=== PATIENT | male | born 1945 | race Caucasian/White ===

== ENCOUNTER 2017-09-01 08:09 | Emergency (ER) | payer MEDICARE, OTHER ==
[~2017-09-01] VITALS: Ht 172.7 cm; Wt 72.6 kg
[2017-09-01 09:01] LABS: Basophils # (auto) 0 uL; Basophils % (auto) 0.3 % (0.0-2.0); Eosinophils # (auto) 0 uL; Eosinophils % (auto) 0.5 % (0.0-7.0); Hematocrit 47.9 % (41.0-53.0); Hemoglobin 16.2 g/dL (13.5-17.5); Lymphocytes # (auto) 1.6 uL; Lymphocytes % (auto) 15.9 % (10.0-50.0); Mean Corpuscular Hemoglobin 31.9 pg (28.0-32.0); Mean Corpuscular Hgb Conc. 33.7 g/dL (32.0-36.0); Mean Corpuscular Volume 94.7 fL (80.0-100.0); Mean Platelet Volume 8.3 fL (6.9-10.8); Monocytes # (auto) 0.8 uL; Monocytes % (auto) 7.8 % (0.0-12.0); Neutrophils # (auto) 7.6 uL; Neutrophils % (auto) 75.5 % (37.0-80.0); Nucleated Red Blood Cells % 0.1 %; Platelet Count (auto) 229 10^3/uL (140-450); White Blood Cell 10.1 10^3/uL (4.4-10.8)
[2017-09-01] MEDS ORDERED: SODIUM CHLORIDE 0.9% 1,000 ML IV ONE (09:07)
[2017-09-01] MEDS ORDERED: IPRATROPIUM BROM 0.5 MG/2.5ML INH SOL NEB ONE (09:15)
[2017-09-01] MEDS ORDERED: ALBUTEROL SULF 2.5 MG/0.5ML(0.5%) NEB SOLN NEB ONE (09:15)
[2017-09-01 09:40] LABS: Albumin 3.9 g/dL (3.4-5.0); BUN/Creatinine Ratio 31.6; Bilirubin, Total 0.7 mg/dL (0.2-1.0); Calcium 9.3 mg/dL (8.5-10.1); Potassium 3.6 mmol/L (3.5-5.1); Total Protein 7.8 g/dL (6.4-8.2)
[2017-09-01 10:11] LABS: B-Type Natriuretic Peptide 16.68 pg/mL (0-100)
[2017-09-01 10:12] LABS: Temperature: 23.5 C (20.0-25.0)
== END 2017-09-01 13:09 | disposition home or self-care (01) ==
LOC: ER 08:09
DX: J45.909 Unspecified asthma, uncomplicated (principal); I10 Essential (primary) hypertension
CPT/HCPCS: 36415; 71010; 80053; 83735; 83880; 84443; 84484; 85025; 93005; 94640; 94761; 96360; 96361; 99285; J7030

== ENCOUNTER 2017-09-03 18:50 | Inpatient (IN) | payer MEDICARE, OTHER ==
[~2017-09-03] VITALS: Ht 172.7 cm; Wt 73.2 kg
[2017-09-03 20:25] LABS: Urine Bacteria MANY /hpf (None Seen); Urine Blood 1+ /uL (Negative); Urine Specific Gravity 1.011 (1.001-1.035); Urine WBC 20 /hpf (0 - 3)
[2017-09-03] MEDS ORDERED: IPRATROPIUM BROM 0.5 MG/2.5ML INH SOL NEB ONE (20:45)
[2017-09-03] MEDS ORDERED: ALBUTEROL SULF 2.5 MG/0.5ML(0.5%) NEB SOLN NEB ONE (20:45)
[2017-09-03 20:55] LABS: Basophils # (auto) 0 uL; Basophils % (auto) 0.4 % (0.0-2.0); Eosinophils # (auto) 0 uL; Eosinophils % (auto) 0.3 % (0.0-7.0); Hematocrit 43.4 % (41.0-53.0); Hemoglobin 15.1 g/dL (13.5-17.5); Lymphocytes % (auto) 8.6 % (10.0-50.0); Mean Corpuscular Hemoglobin 31.7 pg (28.0-32.0); Mean Corpuscular Hgb Conc. 34.7 g/dL (32.0-36.0); Mean Corpuscular Volume 91.3 fL (80.0-100.0); Monocytes % (auto) 8.1 % (0.0-12.0); Neutrophils # (auto) 9.8 uL; Neutrophils % (auto) 82.6 % (37.0-80.0); Nucleated Red Blood Cells % 0.2 %; Platelet Count (auto) 261 10^3/uL (140-450); Red Blood Cells 4.76 10^6/uL (4.5-5.90); Red Cell Distribution Width 13.5 % (11.8-14.3); White Blood Cell 11.8 10^3/uL (4.4-10.8)
[2017-09-03] MEDS ORDERED: methylPREDNISolone SOD SUCC 125 MG/2 ML VL IV ONE (21:00)
[2017-09-03] MEDS ORDERED: cefTRIAXone 1GM/10ml IVPUSH 10 ML IV ONE (21:00)
[2017-09-03 21:07] LABS: Alanine Aminotransferase 16 U/L (16-61); Albumin 3.5 g/dL (3.4-5.0); Anion Gap 9 (5-15); Aspartate Aminotransferase 16 U/L (15-37); BUN/Creatinine Ratio 48.1; Blood Urea Nitrogen 13 mg/dL (7-18); Calcium 8.6 mg/dL (8.5-10.1); Carbon Dioxide 29 mmol/L (21-32); Chloride 93 mmol/L (98-107); GFR African American 429 mL/min; GFR Non-African American 355 mL/min; Glucose 125 mg/dL (74-106); Magnesium 1.9 mg/dL (1.6-2.6); Sodium 131 mmol/L (136-145)
[2017-09-03 21:13] LABS: Alkaline Phosphatase 78 U/L (45-117); Bilirubin, Total 0.4 mg/dL (0.2-1.0); Total Protein 7.2 g/dL (6.4-8.2)
[2017-09-03] MEDS ORDERED: cloNIDine HCL 0.1 MG TAB PO ONE (22:45)
[2017-09-03] MEDS ORDERED: cloNIDine HCL 0.1 MG TAB PO PRN (22:45)
[2017-09-03] MEDS ORDERED: SODIUM CHLORIDE 0.9% 1,000 ML IV SCH (22:48)
[2017-09-03] MEDS ORDERED: LACTULOSE 20Gm/30ML SOLN PO PRN (23:00)
[2017-09-03] MEDS ORDERED: MORPHINE SULF INJ 2 MG/ML SYRINGE 1ML IV PRN (23:00)
[2017-09-03] MEDS ORDERED: ONDANSETRON HCL 4 MG/2 ML VIAL IV PRN (23:00)
[2017-09-03] MEDS ORDERED: LEVOFLOXACIN 500MG 100 ML IV ONE (23:00)
[2017-09-03] MEDS ORDERED: NITROGLYCERIN 0.4 MG SL TAB SL PRN (23:00)
[2017-09-03] MEDS ORDERED: POTASSIUM CHL 10% (20 MEQ/15ML) 15ml ORAL SOLN PO ONE (23:00)
[2017-09-03] MEDS: methylPREDNISolone SOD SUCC 40 MG/ML VL IV SCH (23:00)
[2017-09-04] VITALS (79 sets, daily range): BP systolic 49–176; BP diastolic 37–101
[2017-09-04] MEDS ORDERED: DILTIAZEM HCL 25 MG/5 ML VIAL IV ONE (00:30)
[2017-09-04] MEDS: ALBUTEROL SULF 2.5 MG/0.5ML(0.5%) NEB SOLN NEB SCH ×4 (00:52→18:42)
[2017-09-04] MEDS: IPRATROPIUM BROM 0.5 MG/2.5ML INH SOL NEB SCH ×4 (00:52→18:42)
[2017-09-04] MEDS ORDERED: SUCCINYLCHOLINE CHLORIDE 20 MG/ML 10ML VIAL IV ONE ×4 (01:14→21:15)
[2017-09-04] MEDS ORDERED: ETOMIDATE (2MG/ML) 20ML VIAL IV ONE ×4 (01:14→21:15)
[2017-09-04] MEDS ORDERED: LORazepam 2MG/ML-1ML VIAL IV ONE (01:15)
[2017-09-04] MEDS ORDERED: SODIUM BICARBONATE 8.4% INJ 50ML SYRINGE ONE (01:18)
[2017-09-04] MEDS ORDERED: PROPOFOL 100 ML IV ONE (01:26)
[2017-09-04] MEDS ORDERED: SODIUM BICARBONATE 8.4 % INJ 50ML VIAL IV ONE ×2 (01:30)
[2017-09-04] MEDS ORDERED: PROPOFOL 100 ML IV SCH (01:30)
[2017-09-04] MEDS ORDERED: CLINDAMYCIN 600MG IV 50 ML IV ONE (02:00)
[2017-09-04] MEDS ORDERED: MIDAZOLAM DRIP 50 mg/50mL 50 ML IV ONE (02:03)
[2017-09-04] MEDS ORDERED: NOREPINEPHRINE 8 MG/250ML KIT 250 ML IV ONE (02:12)
[2017-09-04] MEDS ORDERED: SODIUM CHLORIDE 0.9% 1,000 ML IV ONE (02:30)
[2017-09-04] MEDS: MIDAZOLAM DRIP 50 mg/50mL 50 ML IV SCH ×3 (02:38→18:05)
[2017-09-04] MEDS: NOREPINEPHRINE 8 MG/250ML KIT 250 ML IV SCH (02:50)
[2017-09-04 06:51] LABS: Basophils # (auto) 0 uL; Basophils % (auto) 0.1 % (0.0-2.0); Eosinophils # (auto) 0 uL; Hematocrit 42.9 % (41.0-53.0); Hemoglobin 14.8 g/dL (13.5-17.5); Lymphocytes # (auto) 0.5 uL; Lymphocytes % (auto) 2.7 % (10.0-50.0); Mean Corpuscular Hemoglobin 31.7 pg (28.0-32.0); Mean Corpuscular Hgb Conc. 34.5 g/dL (32.0-36.0); Mean Corpuscular Volume 91.9 fL (80.0-100.0); Monocytes # (auto) 0.5 uL; Monocytes % (auto) 2.6 % (0.0-12.0); Neutrophils # (auto) 16.6 uL; Neutrophils % (auto) 94.6 % (37.0-80.0); Nucleated Red Blood Cells % 0.1 %; Platelet Count (auto) 283 10^3/uL (140-450); Red Blood Cells 4.66 10^6/uL (4.5-5.90); Red Cell Distribution Width 13.3 % (11.8-14.3); White Blood Cell 17.6 10^3/uL (4.4-10.8)
[2017-09-04 07:20] LABS: Albumin 3.2 g/dL (3.4-5.0); BUN/Creatinine Ratio 40.6; Bilirubin, Total 0.8 mg/dL (0.2-1.0); Calcium 8.6 mg/dL (8.5-10.1); Potassium 3.4 mmol/L (3.5-5.1); Total Protein 6.6 g/dL (6.4-8.2)
[2017-09-04] MEDS ORDERED: ENOXAPARIN SOD 80 MG/0.8ML SYRINGE SC ONE (08:15)
[2017-09-04] MEDS ORDERED: HCTZ 25 MG TAB PO SCH (10:00)
[2017-09-04] MEDS ORDERED: CLINDAMYCIN 600MG IV 50 ML IV SCH (10:00)
[2017-09-04] MEDS ORDERED: ENOXAPARIN SOD 40 MG/0.4 ML SYRINGE SC SCH (10:00)
[2017-09-04] MEDS ORDERED: LISINOPRIL 20 MG TAB PO SCH (10:00)
[2017-09-04] MEDS: PANTOPRAZOLE 40 MG/10 ML VIAL IV SCH (10:11)
[2017-09-04] MEDS: methylPREDNISolone SOD SUCC 40 MG/ML VL IV SCH ×2 (10:11→23:35)
[2017-09-04] MEDS ORDERED: IOHEXOL 350 MG/ML 100ML IJ ONE ×2 (10:12→16:17)
[2017-09-04] MEDS ORDERED: ATROPINE SULF 0.5 MG/5ML SYR ONE (10:30)
[2017-09-04] MEDS ORDERED: LISI-285 PO (11:08)
[2017-09-04] MEDS ORDERED: CYCL1TAB18 PO (11:08)
[2017-09-04] MEDS ORDERED: PRED-559 PO (11:08)
[2017-09-04] MEDS ORDERED: NAPR375T27 PO (11:08)
[2017-09-04] MEDS ORDERED: TRIA50TA2 PO (11:08)
[2017-09-04] MEDS ORDERED: POM (11:08)
[2017-09-04] MEDS ORDERED: POTASSIUM CHL 20MEQ/50ML 50 ML IV ONE (12:15)
[2017-09-04] MEDS: SODIUM CHLORIDE 0.9% 1,000 ML IV SCH (13:20)
[2017-09-04] MEDS ORDERED: ATROPINE SULFATE 0.4 MG/1 ML VIAL ONE (17:53)
[2017-09-04] MEDS: PIPERACILLIN-TAZOB 3.375GM 50 ML IV SCH ×2 (18:05→23:35)
[2017-09-04] MEDS: ENOXAPARIN SOD 80 MG/0.8ML SYRINGE SC SCH (21:58)
[2017-09-04] MEDS: LEVOFLOXACIN 500MG 100 ML IV SCH (21:58)
[2017-09-04] MEDS ORDERED: cefTRIAXone 1GM/10ml IVPUSH 10 ML IV SCH (22:00)
[2017-09-05] VITALS (83 sets, daily range): BP systolic 90–142; BP diastolic 59–85
[2017-09-05] MEDS: ALBUTEROL SULF 2.5 MG/0.5ML(0.5%) NEB SOLN NEB SCH ×4 (00:31→18:17)
[2017-09-05] MEDS: IPRATROPIUM BROM 0.5 MG/2.5ML INH SOL NEB SCH ×4 (00:31→18:17)
[2017-09-05] MEDS: SODIUM CHLORIDE 0.9% 1,000 ML IV SCH ×2 (01:35→20:35)
[2017-09-05] MEDS: MIDAZOLAM DRIP 50 mg/50mL 50 ML IV SCH ×2 (02:28→21:46)
[2017-09-05] MEDS: NOREPINEPHRINE 8 MG/250ML KIT 250 ML IV SCH (02:29)
[2017-09-05 04:40] LABS: Basophils # (auto) 0 uL; Basophils % (auto) 0.1 % (0.0-2.0); Eosinophils # (auto) 0 uL; Hematocrit 40.3 % (41.0-53.0); Hemoglobin 13.6 g/dL (13.5-17.5); Lymphocytes # (auto) 0.8 uL; Lymphocytes % (auto) 4.1 % (10.0-50.0); Mean Corpuscular Hemoglobin 31.3 pg (28.0-32.0); Mean Corpuscular Hgb Conc. 33.8 g/dL (32.0-36.0); Mean Corpuscular Volume 92.8 fL (80.0-100.0); Monocytes # (auto) 0.9 uL; Neutrophils # (auto) 17.1 uL; Neutrophils % (auto) 90.8 % (37.0-80.0); Platelet Count (auto) 263 10^3/uL (140-450); Red Blood Cells 4.34 10^6/uL (4.5-5.90); Red Cell Distribution Width 13.9 % (11.8-14.3); White Blood Cell 18.8 10^3/uL (4.4-10.8)
[2017-09-05 04:48] LABS: BUN/Creatinine Ratio 46.3; Calcium 8.5 mg/dL (8.5-10.1); Magnesium 2.1 mg/dL (1.6-2.6); Potassium 3.1 mmol/L (3.5-5.1)
[2017-09-05] MEDS: PIPERACILLIN-TAZOB 3.375GM 50 ML IV SCH ×4 (05:24→23:29)
[2017-09-05] MEDS ORDERED: POTASSIUM CHL 10% (20 MEQ/15ML) 15ml ORAL SOLN GT ONE (06:00)
[2017-09-05] MEDS: PROPOFOL 100 ML IV SCH (06:01)
[2017-09-05] MEDS: ENOXAPARIN SOD 80 MG/0.8ML SYRINGE SC SCH ×2 (09:47→21:46)
[2017-09-05] MEDS: PANTOPRAZOLE 40 MG/10 ML VIAL IV SCH (09:47)
[2017-09-05] MEDS: methylPREDNISolone SOD SUCC 40 MG/ML VL IV SCH ×2 (13:12→23:29)
[2017-09-05] MEDS ORDERED: fentaNYL Drip 2500mCg/250mlNS 250 ML IV SCH (14:32)
[2017-09-05] MEDS: LEVOFLOXACIN 500MG 100 ML IV SCH (21:46)
[2017-09-06] VITALS (98 sets, daily range): BP systolic 90–186; BP diastolic 44–127
[2017-09-06] MEDS: NOREPINEPHRINE 8 MG/250ML KIT 250 ML IV SCH (02:30)
[2017-09-06 05:25] LABS: Basophils # (auto) 0 uL; Basophils % (auto) 0.1 % (0.0-2.0); Eosinophils # (auto) 0 uL; Hematocrit 38.7 % (41.0-53.0); Hemoglobin 13.3 g/dL (13.5-17.5); Lymphocytes # (auto) 1.1 uL; Lymphocytes % (auto) 7.4 % (10.0-50.0); Mean Corpuscular Hemoglobin 31.9 pg (28.0-32.0); Mean Corpuscular Hgb Conc. 34.3 g/dL (32.0-36.0); Mean Corpuscular Volume 93.1 fL (80.0-100.0); Monocytes # (auto) 0.6 uL; Monocytes % (auto) 4.4 % (0.0-12.0); Neutrophils # (auto) 12.8 uL; Neutrophils % (auto) 88.1 % (37.0-80.0); Nucleated Red Blood Cells % 0.1 %; Platelet Count (auto) 229 10^3/uL (140-450); Red Blood Cells 4.16 10^6/uL (4.5-5.90); White Blood Cell 14.5 10^3/uL (4.4-10.8)
[2017-09-06 05:37] LABS: BUN/Creatinine Ratio 68.8; Calcium 8.5 mg/dL (8.5-10.1); Potassium 3.5 mmol/L (3.5-5.1)
[2017-09-06] MEDS: PIPERACILLIN-TAZOB 3.375GM 50 ML IV SCH ×3 (05:40→18:08)
[2017-09-06] MEDS: ALBUTEROL SULF 2.5 MG/0.5ML(0.5%) NEB SOLN NEB SCH ×3 (06:23→18:46)
[2017-09-06] MEDS: IPRATROPIUM BROM 0.5 MG/2.5ML INH SOL NEB SCH ×3 (06:24→18:46)
[2017-09-06] MEDS: PROPOFOL 100 ML IV SCH (09:57)
[2017-09-06] MEDS: SODIUM CHLORIDE 0.9% 1,000 ML IV SCH (09:58)
[2017-09-06] MEDS ORDERED: POTASSIUM CHL 20 Meq TABLET PO ONE (11:15)
[2017-09-06] MEDS: PANTOPRAZOLE 40 MG/10 ML VIAL IV SCH (11:22)
[2017-09-06] MEDS: methylPREDNISolone SOD SUCC 40 MG/ML VL IV SCH ×2 (11:24→22:33)
[2017-09-06] MEDS: ENOXAPARIN SOD 80 MG/0.8ML SYRINGE SC SCH ×2 (11:24→22:13)
[2017-09-06] MEDS: ACETAMINOPHEN 325 MG TAB PO PRN (12:52)
[2017-09-06] MEDS: POTASSIUM CHL 10% (20 MEQ/15ML) 15ml ORAL SOLN GT ONE ×2 (12:52→16:00)
[2017-09-06] MEDS ORDERED: POTASSIUM CHL 20MEQ/50ML 50 ML IV ONE ×2 (17:12→17:15)
[2017-09-06] MEDS ORDERED: METOPROLOL TARTRATE 1MG/1ML-5ML VIAL IV ONE ×2 (18:09→18:15)
[2017-09-06] MEDS ORDERED: FUROSEMIDE 40 MG/4 ML VIAL ONE (21:43)
[2017-09-06] MEDS ORDERED: FUROSEMIDE 40 MG/4 ML VIAL IV ONE (21:45)
[2017-09-06] MEDS: LEVOFLOXACIN 500MG 100 ML IV SCH (22:13)
[2017-09-06] MEDS ORDERED: ENALAPRILAT 1.25 MG/ML-1ML VIAL IV ONE (23:44)
[2017-09-07] VITALS (44 sets, daily range): BP systolic 117–218; BP diastolic 78–133
[2017-09-07] MEDS: PIPERACILLIN-TAZOB 3.375GM 50 ML IV SCH ×4 (00:03→18:00)
[2017-09-07] MEDS: ENALAPRILAT 1.25 MG/ML-1ML VIAL IV PRN ×3 (00:03→13:12)
[2017-09-07] MEDS: ALBUTEROL SULF 2.5 MG/0.5ML(0.5%) NEB SOLN NEB SCH ×4 (00:28→18:35)
[2017-09-07] MEDS: IPRATROPIUM BROM 0.5 MG/2.5ML INH SOL NEB SCH ×4 (00:28→18:35)
[2017-09-07] MEDS: SODIUM CHLORIDE 0.9% 1,000 ML IV SCH (01:20)
[2017-09-07 04:05] LABS: Basophils # (auto) 0 uL; Eosinophils # (auto) 0 uL; Hematocrit 45.8 % (41.0-53.0); Hemoglobin 15.3 g/dL (13.5-17.5); Lymphocytes % (auto) 5.5 % (10.0-50.0); Mean Corpuscular Hemoglobin 31.3 pg (28.0-32.0); Mean Corpuscular Hgb Conc. 33.5 g/dL (32.0-36.0); Mean Corpuscular Volume 93.5 fL (80.0-100.0); Monocytes # (auto) 0.8 uL; Monocytes % (auto) 4.8 % (0.0-12.0); Neutrophils # (auto) 15.5 uL; Neutrophils % (auto) 89.7 % (37.0-80.0); Platelet Count (auto) 264 10^3/uL (140-450); Red Cell Distribution Width 13.7 % (11.8-14.3); White Blood Cell 17.3 10^3/uL (4.4-10.8)
[2017-09-07 08:19] LABS: INR 1.07 (0.9-1.15); Prothrombin Time 11.7 sec (9.37-12.3)
[2017-09-07] MEDS ORDERED: POTASSIUM CHL 20MEQ/50ML 50 ML IV ONE (09:15)
[2017-09-07] MEDS ORDERED: METOPROLOL TARTRATE 1MG/1ML-5ML VIAL IV PRN (09:15)
[2017-09-07] MEDS: PANTOPRAZOLE 40 MG/10 ML VIAL IV SCH (09:34)
[2017-09-07] MEDS: ENOXAPARIN SOD 80 MG/0.8ML SYRINGE SC SCH ×2 (09:35→21:39)
[2017-09-07] MEDS: methylPREDNISolone SOD SUCC 40 MG/ML VL IV SCH ×2 (11:40→22:27)
[2017-09-07] MEDS ORDERED: LABETALOL HCL 5 MG/ML ML 20ML VIAL IV SCH (12:00)
[2017-09-07] MEDS ORDERED: LORazepam 2MG/ML-1ML VIAL IM ONE (14:15)
[2017-09-07] MEDS ORDERED: CARVEDILOL 12.5 MG TAB PO ONE (15:00)
[2017-09-07] MEDS ORDERED: LISINOPRIL 20 MG TAB PO ONE (15:00)
[2017-09-07] MEDS: LEVOFLOXACIN 500MG 100 ML IV SCH (21:38)
[2017-09-07] MEDS: CARVEDILOL 12.5 MG TAB PO SCH (21:38)
[2017-09-07] MEDS: ACETAMINOPHEN 325 MG TAB PO PRN (21:43)
[2017-09-07] MEDS: LABETALOL HCL 5 MG/ML ML 20ML VIAL IV PRN (23:07)
[2017-09-08] VITALS (37 sets, daily range): BP systolic 100–208; BP diastolic 64–134
[2017-09-08] MEDS: IPRATROPIUM BROM 0.5 MG/2.5ML INH SOL NEB SCH ×4 (00:35→19:08)
[2017-09-08] MEDS: ALBUTEROL SULF 2.5 MG/0.5ML(0.5%) NEB SOLN NEB SCH ×4 (00:35→19:08)
[2017-09-08 04:06] LABS: Basophils # (auto) 0 uL; Basophils % (auto) 0.1 % (0.0-2.0); Eosinophils # (auto) 0 uL; Hematocrit 40.1 % (41.0-53.0); Hemoglobin 13.7 g/dL (13.5-17.5); Lymphocytes # (auto) 0.8 uL; Lymphocytes % (auto) 5.4 % (10.0-50.0); Mean Corpuscular Hemoglobin 31.5 pg (28.0-32.0); Mean Corpuscular Hgb Conc. 34.2 g/dL (32.0-36.0); Mean Corpuscular Volume 92.1 fL (80.0-100.0); Monocytes # (auto) 0.7 uL; Monocytes % (auto) 4.7 % (0.0-12.0); Neutrophils # (auto) 14.1 uL; Neutrophils % (auto) 89.8 % (37.0-80.0); Platelet Count (auto) 236 10^3/uL (140-450); Red Blood Cells 4.36 10^6/uL (4.5-5.90); Red Cell Distribution Width 13.5 % (11.8-14.3); White Blood Cell 15.7 10^3/uL (4.4-10.8)
[2017-09-08 04:19] LABS: BUN/Creatinine Ratio 94.3; Calcium 8.5 mg/dL (8.5-10.1); Potassium 3.9 mmol/L (3.5-5.1)
[2017-09-08] MEDS: PIPERACILLIN-TAZOB 3.375GM 50 ML IV SCH ×4 (06:03→18:35)
[2017-09-08] MEDS: CARVEDILOL 12.5 MG TAB PO SCH ×2 (10:00→21:44)
[2017-09-08] MEDS: PANTOPRAZOLE 40 MG/10 ML VIAL IV SCH (10:04)
[2017-09-08] MEDS: ENOXAPARIN SOD 80 MG/0.8ML SYRINGE SC SCH (10:05)
[2017-09-08] MEDS: LISINOPRIL 20 MG TAB PO SCH (10:05)
[2017-09-08] MEDS: methylPREDNISolone SOD SUCC 40 MG/ML VL IV SCH ×2 (11:10→23:07)
[2017-09-08] MEDS: LABETALOL HCL 5 MG/ML ML 20ML VIAL IV PRN (20:00)
[2017-09-08] MEDS: LEVOFLOXACIN 500MG 100 ML IV SCH (21:38)
[2017-09-08] MEDS: APIXABAN 5 MG TAB PO SCH (21:38)
[2017-09-09] VITALS (10 sets, daily range): BP systolic 118–189; BP diastolic 69–100
[2017-09-09] MEDS: PIPERACILLIN-TAZOB 3.375GM 50 ML IV SCH ×4 (00:18→17:55)
[2017-09-09] MEDS: ALBUTEROL SULF 2.5 MG/0.5ML(0.5%) NEB SOLN NEB SCH ×4 (00:37→18:21)
[2017-09-09] MEDS: IPRATROPIUM BROM 0.5 MG/2.5ML INH SOL NEB SCH ×4 (00:37→18:21)
[2017-09-09 06:10] LABS: Basophils # (auto) 0 uL; Eosinophils # (auto) 0 uL; Hematocrit 38.4 % (41.0-53.0); Hemoglobin 13.1 g/dL (13.5-17.5); Lymphocytes # (auto) 1.3 uL; Lymphocytes % (auto) 8.4 % (10.0-50.0); Mean Corpuscular Hemoglobin 31.4 pg (28.0-32.0); Mean Corpuscular Hgb Conc. 34.1 g/dL (32.0-36.0); Mean Corpuscular Volume 92.1 fL (80.0-100.0); Monocytes # (auto) 0.8 uL; Monocytes % (auto) 5.1 % (0.0-12.0); Neutrophils # (auto) 13.8 uL; Neutrophils % (auto) 86.5 % (37.0-80.0); Nucleated Red Blood Cells % 0.1 %; Platelet Count (auto) 253 10^3/uL (140-450); Red Blood Cells 4.17 10^6/uL (4.5-5.90); Red Cell Distribution Width 13.5 % (11.8-14.3)
[2017-09-09] MEDS: APIXABAN 5 MG TAB PO SCH ×2 (10:26→22:00)
[2017-09-09] MEDS: CARVEDILOL 12.5 MG TAB PO SCH ×2 (10:26→22:00)
[2017-09-09] MEDS: PANTOPRAZOLE 40 MG/10 ML VIAL IV SCH (10:26)
[2017-09-09] MEDS: LISINOPRIL 20 MG TAB PO SCH (10:27)
[2017-09-09] MEDS: methylPREDNISolone SOD SUCC 40 MG/ML VL IV SCH ×2 (11:34→23:00)
[2017-09-09] MEDS: LABETALOL HCL 5 MG/ML ML 20ML VIAL IV PRN (12:00)
[2017-09-09] MEDS: cefTRIAXone 1GM/10ml IVPUSH 10 ML IV SCH (20:00)
[2017-09-09] MEDS: AZITHROMYCIN 500MG/ 250ML 250 ML IV SCH (20:30)
[2017-09-10] VITALS (58 sets, daily range): BP systolic 74–160; BP diastolic 45–102
[2017-09-10] MEDS: IPRATROPIUM BROM 0.5 MG/2.5ML INH SOL NEB SCH ×4 (06:18→19:04)
[2017-09-10] MEDS: ALBUTEROL SULF 2.5 MG/0.5ML(0.5%) NEB SOLN NEB SCH ×4 (06:18→19:04)
[2017-09-10] MEDS: CARVEDILOL 12.5 MG TAB PO SCH ×3 (10:00→21:06)
[2017-09-10] MEDS: LISINOPRIL 20 MG TAB PO SCH (10:00)
[2017-09-10] MEDS: cefTRIAXone 1GM/10ml IVPUSH 10 ML IV SCH (10:07)
[2017-09-10] MEDS: PANTOPRAZOLE 40 MG/10 ML VIAL IV SCH (10:07)
[2017-09-10] MEDS: AZITHROMYCIN 500MG/ 250ML 250 ML IV SCH (10:08)
[2017-09-10] MEDS: APIXABAN 5 MG TAB PO SCH ×2 (10:11→21:29)
[2017-09-10] MEDS: methylPREDNISolone SOD SUCC 40 MG/ML VL IV SCH ×2 (11:56→22:29)
[2017-09-10] MEDS ORDERED: ETOMIDATE (2MG/ML) 20ML VIAL IV ONE (12:04)
[2017-09-10] MEDS ORDERED: SUCCINYLCHOLINE CHLORIDE 20 MG/ML 10ML VIAL IV ONE (12:06)
[2017-09-10] MEDS ORDERED: PROPOFOL 100 ML IV ONE (12:28)
[2017-09-10] MEDS: SOD CHL 0.9%/ KCL 20MEQ 1,000 ML IV SCH ×2 (12:38→22:33)
[2017-09-10] MEDS ORDERED: PROPOFOL 100 ML IV SCH ×2 (12:41)
[2017-09-10] MEDS ORDERED: NOREPINEPHRINE 8 MG/250ML KIT 250 ML IV ONE (13:01)
[2017-09-10] MEDS: PROPOFOL 100 ML IV SCH ×3 (13:03→22:33)
[2017-09-10] MEDS: NOREPINEPHRINE 8 MG/250ML KIT 250 ML IV SCH (13:38)
[2017-09-10 13:42] LABS: Albumin 2.3 g/dL (3.4-5.0); BUN/Creatinine Ratio 78.5; Calcium 8.2 mg/dL (8.5-10.1); Potassium 3.5 mmol/L (3.5-5.1)
[2017-09-10 13:45] LABS: Bilirubin, Total 0.5 mg/dL (0.2-1.0); Total Protein 5.7 g/dL (6.4-8.2)
[2017-09-10] MEDS ORDERED: FUROSEMIDE 20 MG/2 ML VIAL IV ONE (17:45)
[2017-09-11] VITALS (101 sets, daily range): BP systolic 78–153; BP diastolic 51–99
[2017-09-11 05:14] LABS: Basophils # (auto) 0 uL; Basophils % (auto) 0.1 % (0.0-2.0); Eosinophils # (auto) 0 uL; Hematocrit 34.6 % (41.0-53.0); Hemoglobin 11.5 g/dL (13.5-17.5); Lymphocytes # (auto) 1.5 uL; Lymphocytes % (auto) 7.4 % (10.0-50.0); Mean Corpuscular Hemoglobin 30.6 pg (28.0-32.0); Mean Corpuscular Hgb Conc. 33.2 g/dL (32.0-36.0); Mean Corpuscular Volume 92.2 fL (80.0-100.0); Monocytes # (auto) 1.3 uL; Monocytes % (auto) 6.1 % (0.0-12.0); Neutrophils # (auto) 17.9 uL; Neutrophils % (auto) 86.4 % (37.0-80.0); Nucleated Red Blood Cells % 0.1 %; Platelet Count (auto) 286 10^3/uL (140-450); Red Blood Cells 3.75 10^6/uL (4.5-5.90); Red Cell Distribution Width 13.4 % (11.8-14.3); White Blood Cell 20.8 10^3/uL (4.4-10.8)
[2017-09-11 05:54] LABS: Albumin 2.3 g/dL (3.4-5.0); Potassium 3.5 mmol/L (3.5-5.1)
[2017-09-11 05:56] LABS: BUN/Creatinine Ratio 104.6
[2017-09-11 05:58] LABS: Bilirubin, Total 0.6 mg/dL (0.2-1.0); Total Protein 5.4 g/dL (6.4-8.2)
[2017-09-11] MEDS: ALBUTEROL SULF 2.5 MG/0.5ML(0.5%) NEB SOLN NEB SCH ×4 (06:30→18:42)
[2017-09-11] MEDS: IPRATROPIUM BROM 0.5 MG/2.5ML INH SOL NEB SCH ×4 (06:30→18:42)
[2017-09-11] MEDS: PROPOFOL 100 ML IV SCH ×5 (08:34→21:15)
[2017-09-11] MEDS: SOD CHL 0.9%/ KCL 20MEQ 1,000 ML IV SCH ×3 (08:35→21:13)
[2017-09-11] MEDS: cefTRIAXone 1GM/10ml IVPUSH 10 ML IV SCH (08:37)
[2017-09-11] MEDS: AZITHROMYCIN 500MG/ 250ML 250 ML IV SCH (09:52)
[2017-09-11] MEDS: FUROSEMIDE 20 MG/2 ML VIAL IV SCH (09:52)
[2017-09-11] MEDS: PANTOPRAZOLE 40 MG/10 ML VIAL IV SCH (09:52)
[2017-09-11] MEDS: LISINOPRIL 20 MG TAB PO SCH (09:53)
[2017-09-11] MEDS: APIXABAN 5 MG TAB PO SCH ×2 (09:53→21:13)
[2017-09-11] MEDS: CARVEDILOL 12.5 MG TAB PO SCH ×2 (09:53→21:00)
[2017-09-11] MEDS: methylPREDNISolone SOD SUCC 40 MG/ML VL IV SCH ×2 (11:00→22:41)
[2017-09-11] MEDS: NOREPINEPHRINE 8 MG/250ML KIT 250 ML IV SCH (13:15)
[2017-09-11] MEDS: FLUCONAZOLE 100 MG TAB PO SCH (15:37)
[2017-09-11] MEDS ORDERED: LIDOCAINE 1% HCL (LOCAL ANESTH.) INJ 20ML MDV ID ONE (16:45)
[2017-09-11] MEDS: Nutren Pulmonary 250ml Bottle PO SCH ×2 (18:00→21:14)
[2017-09-11] MEDS: SODIUM CHLOR 0.9% PF (SALINE LOCK) 10ML VIAL IV SCH (21:13)
[2017-09-12] VITALS (112 sets, daily range): BP systolic 81–140; BP diastolic 42–92
[2017-09-12] MEDS: PROPOFOL 100 ML IV SCH ×6 (01:00→22:59)
[2017-09-12 05:01] LABS: Albumin 2.1 g/dL (3.4-5.0); BUN/Creatinine Ratio 103.6; Bilirubin, Total 0.7 mg/dL (0.2-1.0); Calcium 7.6 mg/dL (8.5-10.1); Potassium 3.9 mmol/L (3.5-5.1); Total Protein 5.1 g/dL (6.4-8.2)
[2017-09-12] MEDS: Nutren Pulmonary 250ml Bottle PO SCH ×4 (06:00→21:27)
[2017-09-12] MEDS: IPRATROPIUM BROM 0.5 MG/2.5ML INH SOL NEB SCH ×4 (06:34→18:17)
[2017-09-12] MEDS: ALBUTEROL SULF 2.5 MG/0.5ML(0.5%) NEB SOLN NEB SCH ×4 (06:34→18:18)
[2017-09-12] MEDS: SOD CHL 0.9%/ KCL 20MEQ 1,000 ML IV SCH (07:29)
[2017-09-12 07:58] LABS: Basophils # (auto) 0.1 uL; Basophils % (auto) 0.2 % (0.0-2.0); Eosinophils # (auto) 0 uL; Hematocrit 30.7 % (41.0-53.0); Hemoglobin 10.1 g/dL (13.5-17.5); Lymphocytes # (auto) 0.9 uL; Lymphocytes % (auto) 3.2 % (10.0-50.0); Mean Corpuscular Hgb Conc. 32.9 g/dL (32.0-36.0); Mean Corpuscular Volume 94.2 fL (80.0-100.0); Monocytes # (auto) 1.1 uL; Monocytes % (auto) 3.9 % (0.0-12.0); Neutrophils # (auto) 25.1 uL; Neutrophils % (auto) 92.7 % (37.0-80.0); Platelet Count (auto) 251 10^3/uL (140-450); Red Blood Cells 3.26 10^6/uL (4.5-5.90); Red Cell Distribution Width 13.9 % (11.8-14.3); White Blood Cell 27.1 10^3/uL (4.4-10.8)
[2017-09-12] MEDS: cefTRIAXone 1GM/10ml IVPUSH 10 ML IV SCH (09:12)
[2017-09-12] MEDS: LISINOPRIL 20 MG TAB GT SCH (09:12)
[2017-09-12] MEDS: AZITHROMYCIN 500MG/ 250ML 250 ML IV SCH (09:13)
[2017-09-12] MEDS: PANTOPRAZOLE 40 MG/10 ML VIAL IV SCH (10:03)
[2017-09-12] MEDS: SODIUM CHLOR 0.9% PF (SALINE LOCK) 10ML VIAL IV SCH ×2 (10:03→21:26)
[2017-09-12] MEDS: FUROSEMIDE 20 MG/2 ML VIAL IV SCH (10:04)
[2017-09-12] MEDS: FLUCONAZOLE 100 MG TAB PO SCH (10:05)
[2017-09-12] MEDS: CARVEDILOL 12.5 MG TAB PO SCH ×2 (10:06→20:29)
[2017-09-12] MEDS: APIXABAN 5 MG TAB PO SCH ×2 (10:06→21:26)
[2017-09-12] MEDS: methylPREDNISolone SOD SUCC 40 MG/ML VL IV SCH ×2 (11:17→22:35)
[2017-09-12] MEDS: NOREPINEPHRINE 8 MG/250ML KIT 250 ML IV SCH (13:36)
[2017-09-12] MEDS: FREE WATER GT SCH (21:27)
[2017-09-12] MEDS: ACETAMINOPHEN 325 MG TAB PO PRN (23:20)
[2017-09-13] VITALS (107 sets, daily range): BP systolic 88–144; BP diastolic 58–94
[2017-09-13] MEDS: FREE WATER GT SCH ×6 (02:45→22:21)
[2017-09-13] MEDS: SOD CHL 0.9%/ KCL 20MEQ 1,000 ML IV SCH ×3 (05:35→15:55)
[2017-09-13] MEDS: Nutren Pulmonary 250ml Bottle PO SCH ×4 (05:36→22:20)
[2017-09-13] MEDS: IPRATROPIUM BROM 0.5 MG/2.5ML INH SOL NEB SCH ×4 (06:56→18:23)
[2017-09-13] MEDS: ALBUTEROL SULF 2.5 MG/0.5ML(0.5%) NEB SOLN NEB SCH ×4 (06:56→18:23)
[2017-09-13] MEDS: cefTRIAXone 1GM/10ml IVPUSH 10 ML IV SCH (09:12)
[2017-09-13] MEDS: FUROSEMIDE 20 MG/2 ML VIAL IV SCH (09:53)
[2017-09-13] MEDS: PANTOPRAZOLE 40 MG/10 ML VIAL IV SCH (09:54)
[2017-09-13] MEDS: AZITHROMYCIN 500MG/ 250ML 250 ML IV SCH (09:54)
[2017-09-13] MEDS: SODIUM CHLOR 0.9% PF (SALINE LOCK) 10ML VIAL IV SCH ×2 (09:54→22:04)
[2017-09-13] MEDS: LISINOPRIL 20 MG TAB GT SCH (09:55)
[2017-09-13] MEDS: CARVEDILOL 12.5 MG TAB PO SCH ×2 (09:56→22:00)
[2017-09-13] MEDS: APIXABAN 5 MG TAB PO SCH ×2 (10:00→22:04)
[2017-09-13] MEDS: FLUCONAZOLE 100 MG TAB PO SCH (10:00)
[2017-09-13] MEDS: PROPOFOL 100 ML IV SCH ×4 (10:54→23:23)
[2017-09-13] MEDS: NOREPINEPHRINE 8 MG/250ML KIT 250 ML IV SCH (13:15)
[2017-09-13] MEDS: methylPREDNISolone SOD SUCC 40 MG/ML VL IV SCH ×2 (15:55→23:25)
[2017-09-14] VITALS (104 sets, daily range): BP systolic 81–144; BP diastolic 56–88
[2017-09-14] MEDS: SOD CHL 0.9%/ KCL 20MEQ 1,000 ML IV SCH (01:51)
[2017-09-14] MEDS: FREE WATER GT SCH ×4 (02:07→14:00)
[2017-09-14] MEDS: PROPOFOL 100 ML IV SCH ×3 (03:53→19:42)
[2017-09-14 04:44] LABS: Hemoglobin 8.9 g/dL (13.5-17.5)
[2017-09-14 04:46] LABS: Hematocrit 26.6 % (41.0-53.0); Mean Corpuscular Hemoglobin 31.3 pg (28.0-32.0); Mean Corpuscular Hgb Conc. 33.3 g/dL (32.0-36.0); Mean Corpuscular Volume 93.8 fL (80.0-100.0); Platelet Count (auto) 212 10^3/uL (140-450); Red Blood Cells 2.83 10^6/uL (4.5-5.90); Red Cell Distribution Width 14.2 % (11.8-14.3)
[2017-09-14 04:53] LABS: Band Neutrophils % (manual) 0; Basophils % (manual) 0 (0.0-2.0); Blast Cells 0; Eosinophils % (manual) 0 (0-7); Metamyelocytes % 0; Myelocytes % 0; Promyelocytes % 0; Reactive Lymphocytes 0; White Blood Cell 32.4 10^3/uL (4.4-10.8)
[2017-09-14 04:54] LABS: Albumin 1.8 g/dL (3.4-5.0); BUN/Creatinine Ratio 113.9; Calcium 7.5 mg/dL (8.5-10.1); Potassium 5.1 mmol/L (3.5-5.1)
[2017-09-14 04:57] LABS: Bilirubin, Total 0.3 mg/dL (0.2-1.0); Total Protein 4.6 g/dL (6.4-8.2)
[2017-09-14] MEDS: Nutren Pulmonary 250ml Bottle PO SCH ×4 (06:00→22:06)
[2017-09-14] MEDS: IPRATROPIUM BROM 0.5 MG/2.5ML INH SOL NEB SCH ×5 (06:08→22:33)
[2017-09-14] MEDS: ALBUTEROL SULF 2.5 MG/0.5ML(0.5%) NEB SOLN NEB SCH ×5 (06:08→22:33)
[2017-09-14 06:39] LABS: Lymphocytes % (manual) 1 (10.0-50.0); Monocytes % (manual) 3 (0-12)
[2017-09-14] MEDS: NOREPINEPHRINE 8 MG/250ML KIT 250 ML IV SCH (06:57)
[2017-09-14] MEDS: cefTRIAXone 1GM/10ml IVPUSH 10 ML IV SCH (08:54)
[2017-09-14] MEDS: LISINOPRIL 20 MG TAB GT SCH (10:00)
[2017-09-14] MEDS: CARVEDILOL 12.5 MG TAB PO SCH (10:00)
[2017-09-14] MEDS: APIXABAN 5 MG TAB PO SCH ×2 (10:16→22:06)
[2017-09-14] MEDS: PANTOPRAZOLE 40 MG/10 ML VIAL IV SCH (10:16)
[2017-09-14] MEDS: FUROSEMIDE 20 MG/2 ML VIAL IV SCH (10:16)
[2017-09-14] MEDS: SODIUM CHLOR 0.9% PF (SALINE LOCK) 10ML VIAL IV SCH ×2 (10:17→22:04)
[2017-09-14] MEDS: AZITHROMYCIN 500MG/ 250ML 250 ML IV SCH (10:30)
[2017-09-14] MEDS: FLUCONAZOLE 100 MG TAB PO SCH (10:33)
[2017-09-14] MEDS: methylPREDNISolone SOD SUCC 40 MG/ML VL IV SCH (11:29)
[2017-09-14] MEDS: PIPERACILLIN-TAZOB 3.375GM 50 ML IV SCH (18:20)
[2017-09-15] VITALS (105 sets, daily range): BP systolic 86–146; BP diastolic 55–92
[2017-09-15] MEDS: PIPERACILLIN-TAZOB 3.375GM 50 ML IV SCH ×5 (00:11→23:40)
[2017-09-15] MEDS: PROPOFOL 100 ML IV SCH ×3 (00:32→10:20)
[2017-09-15 03:58] LABS: Hemoglobin 8.3 g/dL (13.5-17.5)
[2017-09-15 03:59] LABS: Hematocrit 24.8 % (41.0-53.0); Mean Corpuscular Hemoglobin 31.5 pg (28.0-32.0); Mean Corpuscular Hgb Conc. 33.5 g/dL (32.0-36.0); Mean Corpuscular Volume 94.1 fL (80.0-100.0); Platelet Count (auto) 239 10^3/uL (140-450); Red Blood Cells 2.64 10^6/uL (4.5-5.90)
[2017-09-15 04:31] LABS: White Blood Cell 33.9 10^3/uL (4.4-10.8)
[2017-09-15 04:33] LABS: Band Neutrophils % (manual) 0; Basophils % (manual) 0 (0.0-2.0); Blast Cells 0; Eosinophils % (manual) 0 (0-7); Myelocytes % 0; Promyelocytes % 0; Reactive Lymphocytes 0
[2017-09-15 04:34] LABS: BUN/Creatinine Ratio 102.9; Calcium 7.6 mg/dL (8.5-10.1); Potassium 4.7 mmol/L (3.5-5.1)
[2017-09-15 04:55] LABS: Lymphocytes % (manual) 2 (10.0-50.0); Metamyelocytes % 1; Monocytes % (manual) 9 (0-12)
[2017-09-15] MEDS: Nutren Pulmonary 250ml Bottle PO SCH ×4 (06:00→22:00)
[2017-09-15] MEDS: ALBUTEROL SULF 2.5 MG/0.5ML(0.5%) NEB SOLN NEB SCH ×5 (07:53→22:18)
[2017-09-15] MEDS: IPRATROPIUM BROM 0.5 MG/2.5ML INH SOL NEB SCH ×5 (07:53→22:18)
[2017-09-15] MEDS: APIXABAN 5 MG TAB PO SCH ×2 (10:20→22:00)
[2017-09-15] MEDS: PANTOPRAZOLE 40 MG/10 ML VIAL IV SCH (10:20)
[2017-09-15] MEDS: FLUCONAZOLE 200MG/100ML 100 ML IV SCH (10:20)
[2017-09-15] MEDS: SODIUM CHLOR 0.9% PF (SALINE LOCK) 10ML VIAL IV SCH ×2 (10:21→22:00)
[2017-09-15] MEDS ORDERED: VANCOMYCIN PER PHARMACY 0 MG IV SCH (12:30)
[2017-09-15] MEDS: NOREPINEPHRINE 8 MG/250ML KIT 250 ML IV SCH ×2 (13:15→20:37)
[2017-09-15] MEDS: VANCOMYCIN 750 MG in D5W 5% 250 ML IV SCH (15:19)
[2017-09-15] MEDS ORDERED: MORPHINE SULF INJ 2 MG/ML SYRINGE 1ML ONE (20:50)
[2017-09-16] VITALS (107 sets, daily range): BP systolic 81–161; BP diastolic 44–95
[2017-09-16] MEDS: IPRATROPIUM BROM 0.5 MG/2.5ML INH SOL NEB SCH ×5 (02:13→18:28)
[2017-09-16] MEDS: ALBUTEROL SULF 2.5 MG/0.5ML(0.5%) NEB SOLN NEB SCH ×5 (02:13→18:28)
[2017-09-16] MEDS: VANCOMYCIN 750 MG in D5W 5% 250 ML IV SCH ×2 (03:00→14:35)
[2017-09-16 04:09] LABS: Hemoglobin 8.6 g/dL (13.5-17.5)
[2017-09-16 04:11] LABS: Hematocrit 26.3 % (41.0-53.0); Mean Corpuscular Hgb Conc. 32.8 g/dL (32.0-36.0); Mean Corpuscular Volume 94.4 fL (80.0-100.0); Platelet Count (auto) 253 10^3/uL (140-450); Red Blood Cells 2.78 10^6/uL (4.5-5.90); Red Cell Distribution Width 14.3 % (11.8-14.3)
[2017-09-16 04:21] LABS: Albumin 1.6 g/dL (3.4-5.0); BUN/Creatinine Ratio 93.8; Bilirubin, Total 0.4 mg/dL (0.2-1.0); Calcium 7.4 mg/dL (8.5-10.1); Potassium 4.5 mmol/L (3.5-5.1); Total Protein 4.6 g/dL (6.4-8.2)
[2017-09-16 04:36] LABS: White Blood Cell 30.6 10^3/uL (4.4-10.8)
[2017-09-16 04:37] LABS: Band Neutrophils % (manual) 0; Basophils % (manual) 0 (0.0-2.0); Blast Cells 0; Eosinophils % (manual) 0 (0-7); Promyelocytes % 0; Reactive Lymphocytes 0
[2017-09-16] MEDS: PIPERACILLIN-TAZOB 3.375GM 50 ML IV SCH ×3 (06:12→18:29)
[2017-09-16] MEDS: Nutren Pulmonary 250ml Bottle PO SCH ×4 (06:12→21:45)
[2017-09-16 06:36] LABS: Lymphocytes % (manual) 7 (10.0-50.0); Metamyelocytes % 1; Monocytes % (manual) 8 (0-12); Myelocytes % 2
[2017-09-16] MEDS: APIXABAN 5 MG TAB PO SCH ×2 (09:22→21:45)
[2017-09-16] MEDS: SODIUM CHLOR 0.9% PF (SALINE LOCK) 10ML VIAL IV SCH ×2 (09:22→21:45)
[2017-09-16] MEDS: FLUCONAZOLE 200MG/100ML 100 ML IV SCH (09:22)
[2017-09-16] MEDS: MORPHINE SULFATE 10 MG/ML INJ 1ML SDV IV PRN ×2 (09:30→18:18)
[2017-09-16] MEDS: PANTOPRAZOLE 40 MG/10 ML VIAL IV SCH (12:14)
[2017-09-16] MEDS: PROPOFOL 100 ML IV SCH ×2 (12:41→20:22)
[2017-09-16] MEDS ORDERED: FUROSEMIDE 20 MG/2 ML VIAL IV ONE (12:45)
[2017-09-16] MEDS ORDERED: LACTULOSE 20Gm/30ML SOLN PO PRN (12:45)
[2017-09-16] MEDS ORDERED: POTASSIUM CHL 10% (20 MEQ/15ML) 15ml ORAL SOLN PO ONE (12:45)
[2017-09-16] MEDS ORDERED: ONDANSETRON HCL 4 MG/2 ML VIAL IV PRN (12:45)
[2017-09-16] MEDS ORDERED: ACETAMINOPHEN 325 MG TAB PO PRN (12:45)
[2017-09-17] VITALS (101 sets, daily range): BP systolic 81–147; BP diastolic 50–91
[2017-09-17] MEDS: VANCOMYCIN 750 MG in D5W 5% 250 ML IV SCH ×2 (03:00→15:00)
[2017-09-17 04:05] LABS: Basophils # (auto) 0 uL; Basophils % (auto) 0.2 % (0.0-2.0); Eosinophils # (auto) 0.5 uL; Eosinophils % (auto) 2.1 % (0.0-7.0); Hematocrit 25.7 % (41.0-53.0); Hemoglobin 8.5 g/dL (13.5-17.5); Lymphocytes # (auto) 1.5 uL; Lymphocytes % (auto) 5.8 % (10.0-50.0); Mean Corpuscular Hemoglobin 31.2 pg (28.0-32.0); Mean Corpuscular Hgb Conc. 33.1 g/dL (32.0-36.0); Mean Corpuscular Volume 94.3 fL (80.0-100.0); Monocytes # (auto) 1.6 uL; Monocytes % (auto) 6.2 % (0.0-12.0); Neutrophils # (auto) 22.6 uL; Neutrophils % (auto) 85.7 % (37.0-80.0); Platelet Count (auto) 271 10^3/uL (140-450); Red Blood Cells 2.72 10^6/uL (4.5-5.90); Red Cell Distribution Width 14.5 % (11.8-14.3); White Blood Cell 26.3 10^3/uL (4.4-10.8)
[2017-09-17] MEDS: PROPOFOL 100 ML IV SCH (04:21)
[2017-09-17 04:31] LABS: Potassium 4.4 mmol/L (3.5-5.1)
[2017-09-17 04:38] LABS: Albumin 1.6 g/dL (3.4-5.0); BUN/Creatinine Ratio 85.2; Calcium 7.8 mg/dL (8.5-10.1)
[2017-09-17 04:41] LABS: Bilirubin, Total 0.3 mg/dL (0.2-1.0); Total Protein 4.9 g/dL (6.4-8.2)
[2017-09-17] MEDS: ALBUTEROL SULF 2.5 MG/0.5ML(0.5%) NEB SOLN NEB SCH ×4 (05:50→18:49)
[2017-09-17] MEDS: IPRATROPIUM BROM 0.5 MG/2.5ML INH SOL NEB SCH ×4 (05:50→18:49)
[2017-09-17] MEDS: PIPERACILLIN-TAZOB 3.375GM 50 ML IV SCH ×4 (05:58→17:52)
[2017-09-17] MEDS: Nutren Pulmonary 250ml Bottle PO SCH ×4 (05:58→22:00)
[2017-09-17] MEDS: MORPHINE SULFATE 10 MG/ML INJ 1ML SDV IV PRN (07:21)
[2017-09-17] MEDS: APIXABAN 5 MG TAB PO SCH ×2 (09:31→22:00)
[2017-09-17] MEDS: SODIUM CHLOR 0.9% PF (SALINE LOCK) 10ML VIAL IV SCH ×2 (09:31→22:00)
[2017-09-17] MEDS: PANTOPRAZOLE 40 MG/10 ML VIAL IV SCH (09:31)
[2017-09-17] MEDS: FLUCONAZOLE 200MG/100ML 100 ML IV SCH (09:31)
[2017-09-17] MEDS: NOREPINEPHRINE 8 MG/250ML KIT 250 ML IV SCH (12:41)
[2017-09-18] VITALS (55 sets, daily range): BP systolic 11–156; BP diastolic 53–115
[2017-09-18] MEDS: MORPHINE SULFATE 10 MG/ML INJ 1ML SDV IV PRN ×3 (00:27→22:21)
[2017-09-18] MEDS: VANCOMYCIN 750 MG in D5W 5% 250 ML IV SCH ×2 (03:00→15:23)
[2017-09-18 04:41] LABS: Basophils # (auto) 0 uL; Eosinophils # (auto) 0.3 uL; Hematocrit 23.3 % (41.0-53.0); Hemoglobin 7.8 g/dL (13.5-17.5); Monocytes # (auto) 1.2 uL; Monocytes % (auto) 7.1 % (0.0-12.0); Neutrophils # (auto) 13.8 uL; Red Blood Cells 2.47 10^6/uL (4.5-5.90)
[2017-09-18 04:44] LABS: Basophils % (auto) 0.1 % (0.0-2.0); Eosinophils % (auto) 1.6 % (0.0-7.0); Lymphocytes # (auto) 1.4 uL; Lymphocytes % (auto) 8.7 % (10.0-50.0); Mean Corpuscular Hemoglobin 31.4 pg (28.0-32.0); Mean Corpuscular Hgb Conc. 33.2 g/dL (32.0-36.0); Mean Corpuscular Volume 94.4 fL (80.0-100.0); Neutrophils % (auto) 82.5 % (37.0-80.0); Platelet Count (auto) 240 10^3/uL (140-450); Red Cell Distribution Width 14.4 % (11.8-14.3); White Blood Cell 16.7 10^3/uL (4.4-10.8)
[2017-09-18 04:51] LABS: Albumin 1.5 g/dL (3.4-5.0); Calcium 7.7 mg/dL (8.5-10.1); Potassium 3.9 mmol/L (3.5-5.1)
[2017-09-18 04:55] LABS: Bilirubin, Total 0.5 mg/dL (0.2-1.0); Total Protein 4.7 g/dL (6.4-8.2)
[2017-09-18] MEDS: Nutren Pulmonary 250ml Bottle PO SCH ×4 (06:00→21:52)
[2017-09-18] MEDS: PIPERACILLIN-TAZOB 3.375GM 50 ML IV SCH ×4 (06:00→18:00)
[2017-09-18] MEDS: IPRATROPIUM BROM 0.5 MG/2.5ML INH SOL NEB SCH ×4 (06:20→19:02)
[2017-09-18] MEDS: ALBUTEROL SULF 2.5 MG/0.5ML(0.5%) NEB SOLN NEB SCH ×4 (06:20→19:02)
[2017-09-18] MEDS: FLUCONAZOLE 200MG/100ML 100 ML IV SCH (09:34)
[2017-09-18] MEDS: APIXABAN 5 MG TAB PO SCH ×2 (09:35→21:52)
[2017-09-18] MEDS: SODIUM CHLOR 0.9% PF (SALINE LOCK) 10ML VIAL IV SCH ×2 (09:35→21:52)
[2017-09-18] MEDS: PANTOPRAZOLE 40 MG/10 ML VIAL IV SCH (09:35)
[2017-09-18] MEDS: PROPOFOL 100 ML IV SCH (12:41)
[2017-09-18] MEDS: NOREPINEPHRINE 8 MG/250ML KIT 250 ML IV SCH (13:15)
[2017-09-19] VITALS (43 sets, daily range): BP systolic 77–150; BP diastolic 40–83
[2017-09-19] MEDS: PIPERACILLIN-TAZOB 3.375GM 50 ML IV SCH ×4 (00:30→18:09)
[2017-09-19] MEDS: VANCOMYCIN 750 MG in SODIUM CHL 0.9% 250 ML IV SCH ×2 (02:38→14:46)
[2017-09-19] MEDS ORDERED: VANCOMYCIN 750 MG in D5W 5% 250 ML IV SCH (03:00)
[2017-09-19 04:51] LABS: Basophils # (auto) 0 uL; Basophils % (auto) 0.2 % (0.0-2.0); Eosinophils # (auto) 0.3 uL; Eosinophils % (auto) 1.9 % (0.0-7.0); Hematocrit 26.3 % (41.0-53.0); Hemoglobin 8.8 g/dL (13.5-17.5); Lymphocytes # (auto) 1.2 uL; Lymphocytes % (auto) 7.7 % (10.0-50.0); Mean Corpuscular Hemoglobin 31.7 pg (28.0-32.0); Mean Corpuscular Hgb Conc. 33.6 g/dL (32.0-36.0); Mean Corpuscular Volume 94.3 fL (80.0-100.0); Monocytes # (auto) 1.1 uL; Neutrophils # (auto) 12.7 uL; Neutrophils % (auto) 83.2 % (37.0-80.0); Nucleated Red Blood Cells % 0.1 %; Platelet Count (auto) 247 10^3/uL (140-450); Red Blood Cells 2.78 10^6/uL (4.5-5.90); Red Cell Distribution Width 13.9 % (11.8-14.3); White Blood Cell 15.2 10^3/uL (4.4-10.8)
[2017-09-19 05:04] LABS: Calcium 7.8 mg/dL (8.5-10.1); Potassium 3.7 mmol/L (3.5-5.1)
[2017-09-19] MEDS: Nutren Pulmonary 250ml Bottle PO SCH ×4 (05:39→22:27)
[2017-09-19] MEDS: IPRATROPIUM BROM 0.5 MG/2.5ML INH SOL NEB SCH ×4 (06:18→18:41)
[2017-09-19] MEDS: ALBUTEROL SULF 2.5 MG/0.5ML(0.5%) NEB SOLN NEB SCH ×4 (06:18→18:40)
[2017-09-19] MEDS: MORPHINE SULFATE 10 MG/ML INJ 1ML SDV IV PRN ×3 (08:06→23:00)
[2017-09-19] MEDS: FLUCONAZOLE 200MG/100ML 100 ML IV SCH (10:00)
[2017-09-19] MEDS: SODIUM CHLOR 0.9% PF (SALINE LOCK) 10ML VIAL IV SCH ×2 (10:00→22:27)
[2017-09-19] MEDS: PANTOPRAZOLE 40 MG/10 ML VIAL IV SCH (10:00)
[2017-09-19] MEDS: APIXABAN 5 MG TAB PO SCH ×2 (10:00→22:27)
[2017-09-19] MEDS: PROPOFOL 100 ML IV SCH (12:08)
[2017-09-19] MEDS: NOREPINEPHRINE 8 MG/250ML KIT 250 ML IV SCH (12:51)
[2017-09-20] VITALS (77 sets, daily range): BP systolic 90–176; BP diastolic 55–122
[2017-09-20] MEDS: PIPERACILLIN-TAZOB 3.375GM 50 ML IV SCH ×5 (00:16→23:46)
[2017-09-20] MEDS: VANCOMYCIN 750 MG in SODIUM CHL 0.9% 250 ML IV SCH ×2 (03:13→15:00)
[2017-09-20 04:05] LABS: Basophils # (auto) 0 uL; Basophils % (auto) 0.1 % (0.0-2.0); Eosinophils # (auto) 0.3 uL; Eosinophils % (auto) 2.1 % (0.0-7.0); Hematocrit 25.5 % (41.0-53.0); Hemoglobin 8.5 g/dL (13.5-17.5); Lymphocytes # (auto) 1.1 uL; Lymphocytes % (auto) 7.8 % (10.0-50.0); Mean Corpuscular Hemoglobin 31.3 pg (28.0-32.0); Mean Corpuscular Hgb Conc. 33.1 g/dL (32.0-36.0); Mean Corpuscular Volume 94.4 fL (80.0-100.0); Monocytes # (auto) 0.9 uL; Monocytes % (auto) 6.9 % (0.0-12.0); Neutrophils # (auto) 11.2 uL; Neutrophils % (auto) 83.1 % (37.0-80.0); Platelet Count (auto) 249 10^3/uL (140-450); Red Cell Distribution Width 14.4 % (11.8-14.3); White Blood Cell 13.5 10^3/uL (4.4-10.8)
[2017-09-20 04:17] LABS: Albumin 1.4 g/dL (3.4-5.0); Calcium 7.5 mg/dL (8.5-10.1); Potassium 3.6 mmol/L (3.5-5.1)
[2017-09-20 04:34] LABS: Bilirubin, Total 0.4 mg/dL (0.2-1.0); Total Protein 4.9 g/dL (6.4-8.2)
[2017-09-20] MEDS: Nutren Pulmonary 250ml Bottle PO SCH ×4 (06:00→21:57)
[2017-09-20] MEDS: IPRATROPIUM BROM 0.5 MG/2.5ML INH SOL NEB SCH ×4 (06:12→18:57)
[2017-09-20] MEDS: ALBUTEROL SULF 2.5 MG/0.5ML(0.5%) NEB SOLN NEB SCH ×4 (06:12→18:57)
[2017-09-20] MEDS: SODIUM CHLOR 0.9% PF (SALINE LOCK) 10ML VIAL IV SCH ×2 (10:07→21:56)
[2017-09-20] MEDS: APIXABAN 5 MG TAB PO SCH (10:11)
[2017-09-20] MEDS: PANTOPRAZOLE 40 MG/10 ML VIAL IV SCH (10:11)
[2017-09-20] MEDS: FLUCONAZOLE 200MG/100ML 100 ML IV SCH (10:11)
[2017-09-20] MEDS: PROPOFOL 100 ML IV SCH (11:27)
[2017-09-20] MEDS ORDERED: FUROSEMIDE 20 MG/2 ML VIAL IV ONE (12:30)
[2017-09-20] MEDS ORDERED: LABETALOL HCL 5 MG/ML ML 20ML VIAL IV PRN (12:30)
[2017-09-20] MEDS ORDERED: POTASSIUM CHL 10% (20 MEQ/15ML) 15ml ORAL SOLN GT ONE (12:30)
[2017-09-20] MEDS: MORPHINE SULFATE 10 MG/ML INJ 1ML SDV IV PRN ×2 (14:31→21:56)
[2017-09-20] MEDS: PRO-STAT 64 30ML GT SCH (21:56)
[2017-09-21] VITALS (74 sets, daily range): BP systolic 62–198; BP diastolic 37–114
[2017-09-21] MEDS: VANCOMYCIN 750 MG in SODIUM CHL 0.9% 250 ML IV SCH ×2 (03:04→17:00)
[2017-09-21 03:52] LABS: Basophils # (auto) 0.1 uL; Basophils % (auto) 0.6 % (0.0-2.0); Eosinophils # (auto) 0.2 uL; Eosinophils % (auto) 1.5 % (0.0-7.0); Hematocrit 26.6 % (41.0-53.0); Hemoglobin 8.9 g/dL (13.5-17.5); Lymphocytes # (auto) 0.9 uL; Lymphocytes % (auto) 6.5 % (10.0-50.0); Mean Corpuscular Hemoglobin 31.7 pg (28.0-32.0); Mean Corpuscular Hgb Conc. 33.4 g/dL (32.0-36.0); Monocytes # (auto) 0.7 uL; Monocytes % (auto) 5.1 % (0.0-12.0); Neutrophils # (auto) 12.2 uL; Neutrophils % (auto) 86.3 % (37.0-80.0); Platelet Count (auto) 260 10^3/uL (140-450); Red Cell Distribution Width 14.2 % (11.8-14.3); White Blood Cell 14.2 10^3/uL (4.4-10.8)
[2017-09-21 04:09] LABS: Calcium 7.7 mg/dL (8.5-10.1)
[2017-09-21] MEDS: Nutren Pulmonary 250ml Bottle PO SCH ×4 (06:00→22:00)
[2017-09-21] MEDS: PIPERACILLIN-TAZOB 3.375GM 50 ML IV SCH ×4 (06:01→23:37)
[2017-09-21] MEDS: IPRATROPIUM BROM 0.5 MG/2.5ML INH SOL NEB SCH ×4 (06:40→19:10)
[2017-09-21] MEDS: ALBUTEROL SULF 2.5 MG/0.5ML(0.5%) NEB SOLN NEB SCH ×4 (06:40→19:10)
[2017-09-21] MEDS: PRO-STAT 64 30ML GT SCH ×2 (10:00→21:51)
[2017-09-21] MEDS: SODIUM CHLOR 0.9% PF (SALINE LOCK) 10ML VIAL IV SCH ×2 (11:07→21:51)
[2017-09-21] MEDS: FLUCONAZOLE 200MG/100ML 100 ML IV SCH (11:08)
[2017-09-21] MEDS: PANTOPRAZOLE 40 MG/10 ML VIAL IV SCH (11:08)
[2017-09-21] MEDS ORDERED: MIDAZOLAM HCL 1MG/1ML-2 ML VIAL ONE ×2 (15:28→15:29)
[2017-09-21] MEDS ORDERED: ETOMIDATE (2MG/ML) 20ML VIAL IV ONE (15:28)
[2017-09-21] MEDS ORDERED: SUCCINYLCHOLINE CHLORIDE 20 MG/ML 10ML VIAL IV ONE (15:30)
[2017-09-21] MEDS ORDERED: LABETALOL HCL 5 MG/ML ML 20ML VIAL IV ONE (16:17)
[2017-09-21] MEDS: MIDAZOLAM DRIP 100 mg/100mL NS 100 ML IV SCH (16:21)
[2017-09-21] MEDS ORDERED: NOREPINEPHRINE 8 MG/250ML KIT 250 ML IV ONE (16:33)
[2017-09-21] MEDS: PROPOFOL 100 ML IV SCH (16:49)
[2017-09-21] MEDS: NOREPINEPHRINE 8 MG/250ML KIT 250 ML IV SCH (17:11)
[2017-09-21] MEDS: SODIUM CHLORIDE 0.9% 1,000 ML IV SCH ×2 (17:11→21:51)
[2017-09-22] VITALS (103 sets, daily range): BP systolic 82–133; BP diastolic 50–94
[2017-09-22] MEDS: PROPOFOL 100 ML IV SCH ×2 (01:55→18:18)
[2017-09-22] MEDS: NOREPINEPHRINE 8 MG/250ML KIT 250 ML IV SCH (01:56)
[2017-09-22] MEDS: VANCOMYCIN 750 MG in SODIUM CHL 0.9% 250 ML IV SCH ×2 (02:54→14:50)
[2017-09-22] MEDS: SODIUM CHLORIDE 0.9% 1,000 ML IV SCH ×2 (02:55→08:54)
[2017-09-22 03:52] LABS: Basophils # (auto) 0.1 uL; Basophils % (auto) 0.3 % (0.0-2.0); Eosinophils # (auto) 0.1 uL; Eosinophils % (auto) 0.6 % (0.0-7.0); Hemoglobin 10.2 g/dL (13.5-17.5); Lymphocytes # (auto) 1.2 uL; Lymphocytes % (auto) 6.9 % (10.0-50.0); Mean Corpuscular Hemoglobin 31.3 pg (28.0-32.0); Mean Corpuscular Hgb Conc. 32.9 g/dL (32.0-36.0); Monocytes # (auto) 1.1 uL; Monocytes % (auto) 6.6 % (0.0-12.0); Neutrophils # (auto) 14.9 uL; Neutrophils % (auto) 85.6 % (37.0-80.0); Nucleated Red Blood Cells % 0.1 %; Platelet Count (auto) 398 10^3/uL (140-450); Red Blood Cells 3.26 10^6/uL (4.5-5.90); Red Cell Distribution Width 14.4 % (11.8-14.3); White Blood Cell 17.4 10^3/uL (4.4-10.8)
[2017-09-22 04:59] LABS: Albumin 1.6 g/dL (3.4-5.0); BUN/Creatinine Ratio 51.3; Bilirubin, Total 0.6 mg/dL (0.2-1.0); Potassium 3.2 mmol/L (3.5-5.1); Total Protein 5.5 g/dL (6.4-8.2)
[2017-09-22] MEDS: PIPERACILLIN-TAZOB 3.375GM 50 ML IV SCH ×3 (05:30→18:18)
[2017-09-22] MEDS: Nutren Pulmonary 250ml Bottle PO SCH ×2 (05:47→12:00)
[2017-09-22] MEDS: IPRATROPIUM BROM 0.5 MG/2.5ML INH SOL NEB SCH ×4 (06:12→18:28)
[2017-09-22] MEDS: ALBUTEROL SULF 2.5 MG/0.5ML(0.5%) NEB SOLN NEB SCH ×4 (06:12→18:28)
[2017-09-22 09:41] LABS: INR 1.07 (0.9-1.15); Partial Thromboplastin Time 29.7 sec (22.64-33.71); Prothrombin Time 11.7 sec (9.37-12.3)
[2017-09-22] MEDS: SODIUM CHLOR 0.9% PF (SALINE LOCK) 10ML VIAL IV SCH ×2 (09:54→21:53)
[2017-09-22] MEDS: PRO-STAT 64 30ML GT SCH ×2 (09:54→21:53)
[2017-09-22] MEDS: PANTOPRAZOLE 40 MG/10 ML VIAL IV SCH (09:54)
[2017-09-22] MEDS: FLUCONAZOLE 200MG/100ML 100 ML IV SCH (09:54)
[2017-09-22] MEDS: D5W/SOD CHL 0.45%/KCL 20MEQ 1,000 ML IV SCH (13:00)
[2017-09-22] MEDS: MIDAZOLAM DRIP 100 mg/100mL NS 100 ML IV SCH (16:21)
[2017-09-23] VITALS (101 sets, daily range): BP systolic 89–129; BP diastolic 37–88
[2017-09-23] MEDS: NOREPINEPHRINE 8 MG/250ML KIT 250 ML IV SCH (00:15)
[2017-09-23] MEDS: PIPERACILLIN-TAZOB 3.375GM 50 ML IV SCH ×3 (00:25→12:58)
[2017-09-23] MEDS: PROPOFOL 100 ML IV SCH ×2 (02:00→11:00)
[2017-09-23] MEDS: D5W/SOD CHL 0.45%/KCL 20MEQ 1,000 ML IV SCH ×2 (02:20→08:30)
[2017-09-23] MEDS: VANCOMYCIN 750 MG in SODIUM CHL 0.9% 250 ML IV SCH (02:41)
[2017-09-23 04:24] LABS: Basophils # (auto) 0.1 uL; Monocytes # (auto) 0.8 uL; Red Blood Cells 2.65 10^6/uL (4.5-5.90)
[2017-09-23 04:27] LABS: Basophils % (auto) 0.8 % (0.0-2.0); Eosinophils # (auto) 0.2 uL; Eosinophils % (auto) 2.1 % (0.0-7.0); Hematocrit 24.7 % (41.0-53.0); Hemoglobin 8.4 g/dL (13.5-17.5); Lymphocytes % (auto) 8.7 % (10.0-50.0); Mean Corpuscular Hemoglobin 31.6 pg (28.0-32.0); Mean Corpuscular Hgb Conc. 33.9 g/dL (32.0-36.0); Mean Corpuscular Volume 93.2 fL (80.0-100.0); Monocytes % (auto) 6.9 % (0.0-12.0); Neutrophils % (auto) 81.5 % (37.0-80.0); Nucleated Red Blood Cells % 0.1 %; Platelet Count (auto) 283 10^3/uL (140-450); Red Cell Distribution Width 14.1 % (11.8-14.3)
[2017-09-23 04:35] LABS: BUN/Creatinine Ratio 34.1; Calcium 7.5 mg/dL (8.5-10.1)
[2017-09-23 04:45] LABS: Potassium 2.6 mmol/L (3.5-5.1)
[2017-09-23 04:47] LABS: INR 1.07 (0.9-1.15); Prothrombin Time 11.7 sec (9.37-12.3)
[2017-09-23] MEDS ORDERED: POTASSIUM CHL 20MEQ/50ML 50 ML IV ONE (05:23)
[2017-09-23] MEDS: POTASSIUM CHL 20MEQ/50ML 50 ML IV SCH ×2 (05:30→06:48)
[2017-09-23] MEDS: ALBUTEROL SULF 2.5 MG/0.5ML(0.5%) NEB SOLN NEB SCH ×3 (06:37→18:19)
[2017-09-23] MEDS: IPRATROPIUM BROM 0.5 MG/2.5ML INH SOL NEB SCH ×3 (06:37→18:18)
[2017-09-23] MEDS: PRO-STAT 64 30ML GT SCH ×2 (10:00→22:20)
[2017-09-23] MEDS: FLUCONAZOLE 200MG/100ML 100 ML IV SCH (10:37)
[2017-09-23] MEDS: SODIUM CHLOR 0.9% PF (SALINE LOCK) 10ML VIAL IV SCH ×2 (10:37→22:20)
[2017-09-23] MEDS: PANTOPRAZOLE 40 MG/10 ML VIAL IV SCH (10:37)
[2017-09-23] MEDS ORDERED: MIDAZOLAM HCL 1MG/1ML-2 ML VIAL ONE ×3 (11:12→11:34)
[2017-09-23] MEDS ORDERED: fentaNYL CITRATE 100 MCG/2 ML VL ONE (11:12)
[2017-09-23] MEDS ORDERED: EPINEPHrine HCL 1 MG/1 ML AMP ONE (11:48)
[2017-09-23] MEDS ORDERED: ALBUTEROL SULF 2.5 MG/0.5ML(0.5%) NEB SOLN NEB ONE (12:00)
[2017-09-23] MEDS ORDERED: POTASSIUM CHLORIDE 40 MEQ, LIDOCAINE 1% (LOCAL ANESTH.) 4 ML in SODIUM CHL 0.9% 100 ML IV ONE (14:15)
[2017-09-23] MEDS: MIDAZOLAM DRIP 100 mg/100mL NS 100 ML IV SCH (16:21)
[2017-09-23] MEDS: MORPHINE SULFATE 10 MG/ML INJ 1ML SDV IV PRN (19:20)
[2017-09-24] VITALS (86 sets, daily range): BP systolic 88–162; BP diastolic 44–86
[2017-09-24] MEDS ORDERED: VANCOMYCIN 750 MG in SODIUM CHL 0.9% 250 ML IV SCH (03:00)
[2017-09-24] MEDS: VANCOMYCIN 750 MG in D5W 5% 250 ML IV SCH ×2 (03:16→15:20)
[2017-09-24 03:52] LABS: Basophils # (auto) 0.1 uL; Basophils % (auto) 0.5 % (0.0-2.0); Eosinophils # (auto) 0.2 uL; Hematocrit 26.5 % (41.0-53.0); Lymphocytes # (auto) 0.8 uL; Lymphocytes % (auto) 7.8 % (10.0-50.0); Mean Corpuscular Hemoglobin 31.7 pg (28.0-32.0); Mean Corpuscular Hgb Conc. 33.9 g/dL (32.0-36.0); Mean Corpuscular Volume 93.5 fL (80.0-100.0); Monocytes # (auto) 0.6 uL; Monocytes % (auto) 5.6 % (0.0-12.0); Neutrophils # (auto) 8.3 uL; Neutrophils % (auto) 84.1 % (37.0-80.0); Platelet Count (auto) 270 10^3/uL (140-450); Red Blood Cells 2.83 10^6/uL (4.5-5.90); Red Cell Distribution Width 14.2 % (11.8-14.3); White Blood Cell 9.9 10^3/uL (4.4-10.8)
[2017-09-24 03:58] LABS: BUN/Creatinine Ratio 54.5; Calcium 7.6 mg/dL (8.5-10.1); Potassium 3.5 mmol/L (3.5-5.1)
[2017-09-24] MEDS: D5W/SOD CHL 0.45%/KCL 20MEQ 1,000 ML IV SCH ×2 (05:13→18:20)
[2017-09-24] MEDS: IPRATROPIUM BROM 0.5 MG/2.5ML INH SOL NEB SCH ×4 (06:16→18:49)
[2017-09-24] MEDS: ALBUTEROL SULF 2.5 MG/0.5ML(0.5%) NEB SOLN NEB SCH ×4 (06:16→18:48)
[2017-09-24] MEDS: MORPHINE SULFATE 10 MG/ML INJ 1ML SDV IV PRN (08:12)
[2017-09-24] MEDS: FLUCONAZOLE 200MG/100ML 100 ML IV SCH (10:33)
[2017-09-24] MEDS: cefTRIAXone 1GM/10ml IVPUSH 10 ML IV SCH (10:33)
[2017-09-24] MEDS: PRO-STAT 64 30ML GT SCH ×2 (10:33→22:19)
[2017-09-24] MEDS: PANTOPRAZOLE 40 MG/10 ML VIAL IV SCH (10:34)
[2017-09-24] MEDS: ENOXAPARIN SOD 40 MG/0.4 ML SYRINGE SC SCH (10:34)
[2017-09-24] MEDS: SODIUM CHLOR 0.9% PF (SALINE LOCK) 10ML VIAL IV SCH ×2 (10:34→22:19)
[2017-09-24] MEDS ORDERED: MORPHINE SULF INJ 2 MG/ML SYRINGE 1ML IV PRN (11:30)
[2017-09-24] MEDS: Nutren Pulmonary 250ml Bottle PO SCH (18:42)
[2017-09-25] VITALS (19 sets, daily range): BP systolic 125–157; BP diastolic 70–96
[2017-09-25] MEDS: VANCOMYCIN 750 MG in D5W 5% 250 ML IV SCH ×2 (03:00→15:30)
[2017-09-25 05:21] LABS: Basophils # (auto) 0.1 uL; Basophils % (auto) 0.8 % (0.0-2.0); Eosinophils # (auto) 0.3 uL; Eosinophils % (auto) 3.3 % (0.0-7.0); Hematocrit 26.1 % (41.0-53.0); Hemoglobin 8.8 g/dL (13.5-17.5); Lymphocytes # (auto) 0.9 uL; Lymphocytes % (auto) 10.5 % (10.0-50.0); Mean Corpuscular Hemoglobin 31.7 pg (28.0-32.0); Mean Corpuscular Hgb Conc. 33.8 g/dL (32.0-36.0); Mean Corpuscular Volume 93.5 fL (80.0-100.0); Monocytes # (auto) 0.5 uL; Monocytes % (auto) 6.5 % (0.0-12.0); Neutrophils # (auto) 6.7 uL; Neutrophils % (auto) 78.9 % (37.0-80.0); Platelet Count (auto) 256 10^3/uL (140-450); Red Blood Cells 2.79 10^6/uL (4.5-5.90); Red Cell Distribution Width 14.6 % (11.8-14.3); White Blood Cell 8.5 10^3/uL (4.4-10.8)
[2017-09-25 05:54] LABS: BUN/Creatinine Ratio 47.6; Calcium 7.3 mg/dL (8.5-10.1); Magnesium 1.9 mg/dL (1.6-2.6)
[2017-09-25] MEDS: ALBUTEROL SULF 2.5 MG/0.5ML(0.5%) NEB SOLN NEB SCH ×3 (06:41→18:12)
[2017-09-25] MEDS: IPRATROPIUM BROM 0.5 MG/2.5ML INH SOL NEB SCH ×3 (06:41→18:12)
[2017-09-25] MEDS: D5W/SOD CHL 0.45%/KCL 20MEQ 1,000 ML IV SCH (07:40)
[2017-09-25] MEDS: Nutren Pulmonary 250ml Bottle PO SCH ×2 (08:00→18:06)
[2017-09-25] MEDS: cefTRIAXone 1GM/10ml IVPUSH 10 ML IV SCH (09:30)
[2017-09-25] MEDS: ENOXAPARIN SOD 40 MG/0.4 ML SYRINGE SC SCH (09:33)
[2017-09-25] MEDS: PANTOPRAZOLE 40 MG/10 ML VIAL IV SCH (09:34)
[2017-09-25] MEDS: SODIUM CHLOR 0.9% PF (SALINE LOCK) 10ML VIAL IV SCH (10:00)
[2017-09-25] MEDS: FLUCONAZOLE 200MG/100ML 100 ML IV SCH (10:00)
[2017-09-25] MEDS: PRO-STAT 64 30ML GT SCH ×2 (10:30→22:00)
[2017-09-25] MEDS: POTASSIUM CHL 10% (20 MEQ/15ML) 15ml ORAL SOLN GT SCH ×2 (11:40→22:06)
[2017-09-25] MEDS ORDERED: MORPHINE SULF INJ 2 MG/ML SYRINGE 1ML ONE (21:28)
[2017-09-25] MEDS: MORPHINE SULFATE 10 MG/ML INJ 1ML SDV IV PRN (21:41)
[2017-09-26] VITALS (24 sets, daily range): BP systolic 81–173; BP diastolic 52–104
[2017-09-26] MEDS: VANCOMYCIN 750 MG in D5W 5% 250 ML IV SCH ×2 (03:19→15:00)
[2017-09-26] MEDS: D5W/SOD CHL 0.45%/KCL 20MEQ 1,000 ML IV SCH ×3 (05:00→21:00)
[2017-09-26 05:59] LABS: BUN/Creatinine Ratio 36.4; Calcium 7.7 mg/dL (8.5-10.1); Potassium 3.6 mmol/L (3.5-5.1)
[2017-09-26] MEDS: ALBUTEROL SULF 2.5 MG/0.5ML(0.5%) NEB SOLN NEB SCH ×5 (06:33→22:23)
[2017-09-26] MEDS: IPRATROPIUM BROM 0.5 MG/2.5ML INH SOL NEB SCH ×5 (06:34→22:24)
[2017-09-26] MEDS: Nutren Pulmonary 250ml Bottle PO SCH ×2 (08:00→18:22)
[2017-09-26] MEDS: SODIUM CHLOR 0.9% PF (SALINE LOCK) 10ML VIAL IV SCH ×2 (10:00)
[2017-09-26] MEDS: PANTOPRAZOLE 40 MG/10 ML VIAL IV SCH (10:31)
[2017-09-26] MEDS: POTASSIUM CHL 10% (20 MEQ/15ML) 15ml ORAL SOLN GT SCH ×2 (10:32→22:40)
[2017-09-26] MEDS: FLUCONAZOLE 200MG/100ML 100 ML IV SCH (10:32)
[2017-09-26] MEDS: ENOXAPARIN SOD 40 MG/0.4 ML SYRINGE SC SCH (10:33)
[2017-09-26] MEDS: PRO-STAT 64 30ML GT SCH ×2 (10:46→22:40)
[2017-09-26] MEDS: MORPHINE SULFATE 10 MG/ML INJ 1ML SDV IV PRN (12:40)
[2017-09-27] VITALS (12 sets, daily range): BP systolic 127–146; BP diastolic 76–95
[2017-09-27] MEDS: MORPHINE SULFATE 10 MG/ML INJ 1ML SDV IV PRN ×2 (00:05→06:29)
[2017-09-27] MEDS: SODIUM CHLOR 0.9% PF (SALINE LOCK) 10ML VIAL IV SCH ×3 (00:06→22:05)
[2017-09-27] MEDS: VANCOMYCIN 750 MG in D5W 5% 250 ML IV SCH ×2 (03:00→17:30)
[2017-09-27] MEDS: ALBUTEROL SULF 2.5 MG/0.5ML(0.5%) NEB SOLN NEB SCH ×5 (07:19→22:59)
[2017-09-27] MEDS: IPRATROPIUM BROM 0.5 MG/2.5ML INH SOL NEB SCH ×5 (07:19→22:59)
[2017-09-27] MEDS: Nutren Pulmonary 250ml Bottle PO SCH ×2 (08:00→17:32)
[2017-09-27] MEDS: PRO-STAT 64 30ML GT SCH ×2 (09:30→22:00)
[2017-09-27] MEDS: POTASSIUM CHL 10% (20 MEQ/15ML) 15ml ORAL SOLN GT SCH ×2 (09:30→22:05)
[2017-09-27] MEDS: ENOXAPARIN SOD 40 MG/0.4 ML SYRINGE SC SCH (09:30)
[2017-09-27] MEDS: FLUCONAZOLE 200MG/100ML 100 ML IV SCH (09:30)
[2017-09-27] MEDS: PANTOPRAZOLE 40 MG/10 ML VIAL IV SCH (09:30)
[2017-09-27 10:32] LABS: Hematocrit 25.7 % (41.0-53.0); Hemoglobin 8.9 g/dL (13.5-17.5); Mean Corpuscular Hemoglobin 32.3 pg (28.0-32.0); Mean Corpuscular Hgb Conc. 34.5 g/dL (32.0-36.0); Mean Corpuscular Volume 93.7 fL (80.0-100.0); Platelet Count (auto) 262 10^3/uL (140-450); Red Blood Cells 2.74 10^6/uL (4.5-5.90); Red Cell Distribution Width 14.2 % (11.8-14.3); White Blood Cell 9.2 10^3/uL (4.4-10.8)
[2017-09-27 10:56] LABS: Basophils % (manual) 0 (0.0-2.0); Blast Cells 0; Metamyelocytes % 0; Myelocytes % 0; Promyelocytes % 0; Reactive Lymphocytes 0
[2017-09-27 11:17] LABS: Band Neutrophils % (manual) 1; Eosinophils % (manual) 3 (0-7); Lymphocytes % (manual) 13 (10.0-50.0); Monocytes % (manual) 4 (0-12)
[2017-09-27 13:00] LABS: Albumin 1.5 g/dL (3.4-5.0); BUN/Creatinine Ratio 44.4; Bilirubin, Total 0.3 mg/dL (0.2-1.0); Calcium 7.7 mg/dL (8.5-10.1); Potassium 4.3 mmol/L (3.5-5.1); Total Protein 5.1 g/dL (6.4-8.2)
[2017-09-27] MEDS ORDERED: VANCOMYCIN PER PHARMACY 0 MG IV SCH (13:15)
[2017-09-27] MEDS ORDERED: ACETYLCYSTEINE 20%(200MG/ML) SOL 4ML NEB SCH (18:00)
[2017-09-27 18:42] LABS: INR 0.98 (0.9-1.15); Prothrombin Time 10.7 sec (9.37-12.3)
[2017-09-27] MEDS: ACETYLCYSTEINE 20%(200MG/ML) SOL 4ML NEB SCH (23:00)
[2017-09-28] VITALS (8 sets, daily range): BP systolic 126–181; BP diastolic 80–99
[2017-09-28] MEDS: ALBUTEROL SULF 2.5 MG/0.5ML(0.5%) NEB SOLN NEB SCH ×6 (02:46→22:28)
[2017-09-28] MEDS: ACETYLCYSTEINE 20%(200MG/ML) SOL 4ML NEB SCH ×6 (02:46→22:28)
[2017-09-28] MEDS: IPRATROPIUM BROM 0.5 MG/2.5ML INH SOL NEB SCH ×6 (02:46→22:28)
[2017-09-28] MEDS: VANCOMYCIN 750 MG in D5W 5% 250 ML IV SCH ×2 (03:00→03:17)
[2017-09-28 03:24] LABS: Basophils # (auto) 0.1 uL; Eosinophils # (auto) 0.3 uL; Eosinophils % (auto) 3.6 % (0.0-7.0); Hematocrit 26.2 % (41.0-53.0); Hemoglobin 8.8 g/dL (13.5-17.5); Lymphocytes # (auto) 1.5 uL; Lymphocytes % (auto) 16.7 % (10.0-50.0); Mean Corpuscular Hemoglobin 31.5 pg (28.0-32.0); Mean Corpuscular Hgb Conc. 33.6 g/dL (32.0-36.0); Mean Corpuscular Volume 93.7 fL (80.0-100.0); Monocytes # (auto) 0.8 uL; Monocytes % (auto) 9.5 % (0.0-12.0); Neutrophils # (auto) 6.1 uL; Neutrophils % (auto) 69.2 % (37.0-80.0); Nucleated Red Blood Cells % 0.1 %; Platelet Count (auto) 329 10^3/uL (140-450); Red Blood Cells 2.79 10^6/uL (4.5-5.90); Red Cell Distribution Width 14.5 % (11.8-14.3); White Blood Cell 8.8 10^3/uL (4.4-10.8)
[2017-09-28 03:45] LABS: BUN/Creatinine Ratio 44.4; Potassium 4.2 mmol/L (3.5-5.1)
[2017-09-28] MEDS: Nutren Pulmonary 250ml Bottle PO SCH ×2 (08:00→17:39)
[2017-09-28] MEDS: POTASSIUM CHL 10% (20 MEQ/15ML) 15ml ORAL SOLN GT SCH (10:00)
[2017-09-28] MEDS: ENOXAPARIN SOD 40 MG/0.4 ML SYRINGE SC SCH (10:00)
[2017-09-28] MEDS: PRO-STAT 64 30ML GT SCH ×2 (10:00→22:00)
[2017-09-28] MEDS ORDERED: SODIUM CHLORIDE LOCK 10 ML ONE (10:12)
[2017-09-28] MEDS ORDERED: BENZOCAINE (DENTAL) 20 % SPRAY 60ML MT ONE (10:12)
[2017-09-28] MEDS ORDERED: LIDOCAINE VISCOUS 2% 15ML UD ONE (10:13)
[2017-09-28] MEDS ORDERED: diphenhdrAMINE HCL 50 MG/1 ML VL ONE (10:13)
[2017-09-28] MEDS: FLUCONAZOLE 200MG/100ML 100 ML IV SCH (10:42)
[2017-09-28] MEDS: PANTOPRAZOLE 40 MG/10 ML VIAL IV SCH (10:43)
[2017-09-28] MEDS: SODIUM CHLOR 0.9% PF (SALINE LOCK) 10ML VIAL IV SCH ×2 (10:43→23:11)
[2017-09-28] MEDS ORDERED: ceFAZolin 1GM/50ML 50 ML IV ONE (10:53)
[2017-09-28] MEDS ORDERED: LIDOCAINE 2%HCL (LOCAL ANESTH.) INJ 20ML MDV ONE (10:59)
[2017-09-28] MEDS ORDERED: SODIUM CHLORIDE LOCK 20 ML ONE (11:00)
[2017-09-28] MEDS ORDERED: EPINEPHrine HCL 1 MG/1 ML AMP ONE (11:00)
[2017-09-28] MEDS ORDERED: LIDOCAINE HCL 2% TOP JELLY 5ML TOP ONE (11:00)
[2017-09-28] MEDS: MIDAZOLAM HCL 5 MG/ML-1ML VIAL ONE ×2 (11:57→12:01)
[2017-09-28] MEDS: fentaNYL CITRATE 100 MCG/2 ML VL ONE ×2 (11:57→12:01)
[2017-09-28] MEDS ORDERED: MIDAZOLAM HCL 1MG/1ML-2 ML VIAL ONE (12:02)
[2017-09-28] MEDS ORDERED: ACETAMINOPHEN 325 MG TAB PO PRN (13:00)
[2017-09-28] MEDS ORDERED: LACTULOSE 20Gm/30ML SOLN PO PRN (13:00)
[2017-09-28] MEDS ORDERED: ONDANSETRON HCL 4 MG/2 ML VIAL IV PRN (13:00)
[2017-09-29] VITALS (16 sets, daily range): BP systolic 130–153; BP diastolic 78–111
[2017-09-29] MEDS: ACETYLCYSTEINE 20%(200MG/ML) SOL 4ML NEB SCH ×6 (02:16→22:15)
[2017-09-29] MEDS: ALBUTEROL SULF 2.5 MG/0.5ML(0.5%) NEB SOLN NEB SCH ×6 (02:17→22:15)
[2017-09-29] MEDS: IPRATROPIUM BROM 0.5 MG/2.5ML INH SOL NEB SCH ×6 (02:17→22:15)
[2017-09-29 05:44] LABS: Basophils # (auto) 0.1 uL; Basophils % (auto) 0.8 % (0.0-2.0); Eosinophils # (auto) 0.3 uL; Eosinophils % (auto) 3.6 % (0.0-7.0); Hematocrit 26.6 % (41.0-53.0); Lymphocytes # (auto) 1.2 uL; Lymphocytes % (auto) 14.3 % (10.0-50.0); Mean Corpuscular Hemoglobin 31.7 pg (28.0-32.0); Mean Corpuscular Hgb Conc. 33.7 g/dL (32.0-36.0); Monocytes # (auto) 0.9 uL; Neutrophils # (auto) 5.9 uL; Neutrophils % (auto) 70.3 % (37.0-80.0); Platelet Count (auto) 341 10^3/uL (140-450); Red Blood Cells 2.84 10^6/uL (4.5-5.90); Red Cell Distribution Width 14.8 % (11.8-14.3); White Blood Cell 8.4 10^3/uL (4.4-10.8)
[2017-09-29 06:03] LABS: BUN/Creatinine Ratio 41.7; Potassium 3.8 mmol/L (3.5-5.1)
[2017-09-29] MEDS: FLUCONAZOLE 200MG/100ML 100 ML IV SCH (09:51)
[2017-09-29] MEDS: MORPHINE SULFATE 10 MG/ML INJ 1ML SDV IV PRN ×2 (09:52→22:14)
[2017-09-29] MEDS: SODIUM CHLOR 0.9% PF (SALINE LOCK) 10ML VIAL IV SCH ×2 (09:53→22:10)
[2017-09-29] MEDS: ENOXAPARIN SOD 40 MG/0.4 ML SYRINGE SC SCH (09:54)
[2017-09-29] MEDS: PANTOPRAZOLE 40 MG/10 ML VIAL IV SCH (09:54)
[2017-09-29] MEDS: PRO-STAT 64 30ML GT SCH ×2 (10:00→22:00)
[2017-09-29] MEDS ORDERED: FUROSEMIDE 40 MG TAB PO ONE (11:00)
[2017-09-29] MEDS ORDERED: POTASSIUM CHL 10% (20 MEQ/15ML) 15ml ORAL SOLN GT ONE (11:00)
[2017-09-29] MEDS: Nutren Pulmonary 250ml Bottle PO SCH ×2 (18:00→18:02)
[2017-09-30] VITALS (11 sets, daily range): BP systolic 133–158; BP diastolic 79–96
[2017-09-30] MEDS: ACETYLCYSTEINE 20%(200MG/ML) SOL 4ML NEB SCH ×6 (02:16→22:22)
[2017-09-30] MEDS: ALBUTEROL SULF 2.5 MG/0.5ML(0.5%) NEB SOLN NEB SCH ×6 (02:16→22:22)
[2017-09-30] MEDS: IPRATROPIUM BROM 0.5 MG/2.5ML INH SOL NEB SCH ×6 (02:16→22:22)
[2017-09-30 05:45] LABS: Hematocrit 27.4 % (41.0-53.0); Hemoglobin 9.3 g/dL (13.5-17.5); Mean Corpuscular Hemoglobin 31.9 pg (28.0-32.0); Mean Corpuscular Hgb Conc. 34.1 g/dL (32.0-36.0); Mean Corpuscular Volume 93.8 fL (80.0-100.0); Platelet Count (auto) 380 10^3/uL (140-450); Red Blood Cells 2.92 10^6/uL (4.5-5.90); Red Cell Distribution Width 14.7 % (11.8-14.3)
[2017-09-30 05:55] LABS: Basophils % (manual) 0 (0.0-2.0); Blast Cells 0; Promyelocytes % 0; Reactive Lymphocytes 0
[2017-09-30 06:00] LABS: Calcium 8.2 mg/dL (8.5-10.1); Potassium 3.8 mmol/L (3.5-5.1)
[2017-09-30 06:52] LABS: Band Neutrophils % (manual) 3; Eosinophils % (manual) 3 (0-7); Lymphocytes % (manual) 19 (10.0-50.0); Metamyelocytes % 1; Monocytes % (manual) 9 (0-12); Myelocytes % 1
[2017-09-30] MEDS: FUROSEMIDE 40 MG TAB PO SCH (09:56)
[2017-09-30] MEDS: FLUCONAZOLE 200MG/100ML 100 ML IV SCH (09:56)
[2017-09-30] MEDS: PANTOPRAZOLE 40 MG/10 ML VIAL IV SCH (09:56)
[2017-09-30] MEDS: SODIUM CHLOR 0.9% PF (SALINE LOCK) 10ML VIAL IV SCH ×2 (09:57→22:52)
[2017-09-30] MEDS: ENOXAPARIN SOD 40 MG/0.4 ML SYRINGE SC SCH (09:57)
[2017-09-30] MEDS: POTASSIUM CHL 10% (20 MEQ/15ML) 15ml ORAL SOLN GT SCH (09:58)
[2017-09-30] MEDS: PRO-STAT 64 30ML GT SCH ×2 (12:04→22:00)
[2017-09-30] MEDS: Nutren Pulmonary 250ml Bottle PO SCH ×2 (12:04→18:00)
[2017-10-01] VITALS (12 sets, daily range): BP systolic 115–143; BP diastolic 73–102
[2017-10-01] MEDS: ALBUTEROL SULF 2.5 MG/0.5ML(0.5%) NEB SOLN NEB SCH ×6 (02:20→22:25)
[2017-10-01] MEDS: IPRATROPIUM BROM 0.5 MG/2.5ML INH SOL NEB SCH ×6 (02:20→22:25)
[2017-10-01] MEDS: ACETYLCYSTEINE 20%(200MG/ML) SOL 4ML NEB SCH ×6 (02:20→22:25)
[2017-10-01 05:36] LABS: INR 1.04 (0.9-1.15); Partial Thromboplastin Time 27.3 sec (22.64-33.71); Prothrombin Time 11.3 sec (9.37-12.3)
[2017-10-01] MEDS: Nutren Pulmonary 250ml Bottle PO SCH ×2 (08:00→18:00)
[2017-10-01] MEDS: FLUCONAZOLE 200MG/100ML 100 ML IV SCH (09:57)
[2017-10-01] MEDS: SODIUM CHLOR 0.9% PF (SALINE LOCK) 10ML VIAL IV SCH ×2 (09:58→22:03)
[2017-10-01] MEDS: PANTOPRAZOLE 40 MG/10 ML VIAL IV SCH (09:58)
[2017-10-01] MEDS: ENOXAPARIN SOD 40 MG/0.4 ML SYRINGE SC SCH (10:00)
[2017-10-01] MEDS: PRO-STAT 64 30ML GT SCH ×2 (10:00→19:13)
[2017-10-01] MEDS: POTASSIUM CHL 10% (20 MEQ/15ML) 15ml ORAL SOLN GT SCH (10:00)
[2017-10-01] MEDS: FUROSEMIDE 40 MG TAB PO SCH (10:00)
[2017-10-01] MEDS ORDERED: ceFAZolin 1GM VL ONE (10:40)
[2017-10-01] MEDS ORDERED: POVIDONE IODINE 10 % TOPICAL OINT 30GM TOP ONE (10:41)
[2017-10-01] MEDS ORDERED: BUPIVACAINE 0.25% INJ 50ML VIAL ONE (10:41)
[2017-10-01] MEDS ORDERED: PROPOFOL 10 MG/ML 20 ML IV ONE (11:41)
[2017-10-01] MEDS ORDERED: fentaNYL CITRATE 100 MCG/2 ML VL ONE (11:41)
[2017-10-01] MEDS ORDERED: MIDAZOLAM HCL 1MG/1ML-2 ML VIAL ONE ×3 (11:41→12:43)
[2017-10-01] MEDS ORDERED: ROCURONIUM 10MG/ML 10ML VIAL IV ONE (11:45)
[2017-10-01] MEDS ORDERED: ceFAZolin 1GM/50ML 50 ML IV ONE (12:09)
[2017-10-01] MEDS ORDERED: ONDANSETRON HCL 4 MG/2 ML VIAL IV ONE (13:00)
[2017-10-01] MEDS ORDERED: hydrALAZINE HCL 20 MG/ML VL IV PRN (13:00)
[2017-10-01] MEDS ORDERED: ePHEDrine SULFATE 50 MG/ML AMP IV PRN (13:00)
[2017-10-01] MEDS ORDERED: MORPHINE SULF INJ 2 MG/ML SYRINGE 1ML IV PRN (13:00)
[2017-10-01] MEDS: MORPHINE SULFATE 10 MG/ML INJ 1ML SDV IV PRN ×2 (15:00→22:49)
[2017-10-01] MEDS: D5W/SOD CHL 0.45%/KCL 20MEQ 1,000 ML IV SCH (17:36)
[2017-10-02] VITALS: BP 138/88
[2017-10-02 04:02] VITALS: BP 132/90
[2017-10-02] MEDS: D5W/SOD CHL 0.45%/KCL 20MEQ 1,000 ML IV SCH ×2 (05:55→22:39)
[2017-10-02 06:06] LABS: Hemoglobin 8.9 g/dL (13.5-17.5); Mean Corpuscular Hemoglobin 31.2 pg (28.0-32.0); Mean Corpuscular Hgb Conc. 33.1 g/dL (32.0-36.0); Mean Corpuscular Volume 94.2 fL (80.0-100.0); Platelet Count (auto) 423 10^3/uL (140-450); Red Blood Cells 2.86 10^6/uL (4.5-5.90); Red Cell Distribution Width 14.8 % (11.8-14.3); White Blood Cell 11.1 10^3/uL (4.4-10.8)
[2017-10-02] MEDS: ALBUTEROL SULF 2.5 MG/0.5ML(0.5%) NEB SOLN NEB SCH ×5 (06:07→22:05)
[2017-10-02] MEDS: IPRATROPIUM BROM 0.5 MG/2.5ML INH SOL NEB SCH ×5 (06:07→22:05)
[2017-10-02] MEDS: ACETYLCYSTEINE 20%(200MG/ML) SOL 4ML NEB SCH ×4 (06:07→22:07)
[2017-10-02 06:09] LABS: Basophils % (manual) 0 (0.0-2.0); Blast Cells 0; Metamyelocytes % 0; Myelocytes % 0; Promyelocytes % 0; Reactive Lymphocytes 0
[2017-10-02 06:34] LABS: BUN/Creatinine Ratio 41.2; Calcium 7.9 mg/dL (8.5-10.1); Potassium 3.6 mmol/L (3.5-5.1)
[2017-10-02 08:00] VITALS: BP 129/88
[2017-10-02] MEDS: Nutren Pulmonary 250ml Bottle PO SCH ×2 (08:00→15:44)
[2017-10-02 09:45] LABS: Band Neutrophils % (manual) 1; Eosinophils % (manual) 6 (0-7); Lymphocytes % (manual) 14 (10.0-50.0); Monocytes % (manual) 7 (0-12)
[2017-10-02] MEDS: PANTOPRAZOLE 40 MG/10 ML VIAL IV SCH (09:53)
[2017-10-02] MEDS: ENOXAPARIN SOD 40 MG/0.4 ML SYRINGE SC SCH (09:53)
[2017-10-02] MEDS: PRO-STAT 64 30ML GT SCH ×2 (09:54→22:00)
[2017-10-02] MEDS: FLUCONAZOLE 200MG/100ML 100 ML IV SCH (09:54)
[2017-10-02] MEDS: POTASSIUM CHL 10% (20 MEQ/15ML) 15ml ORAL SOLN GT SCH (09:56)
[2017-10-02] MEDS: SODIUM CHLOR 0.9% PF (SALINE LOCK) 10ML VIAL IV SCH ×2 (09:56→22:08)
[2017-10-02] MEDS: FUROSEMIDE 40 MG TAB PO SCH (09:56)
[2017-10-02 11:37] VITALS: BP 146/87
[2017-10-02 15:42] VITALS: BP 148/92
[2017-10-02 20:23] VITALS: BP 151/98
[2017-10-02] MEDS: MORPHINE SULFATE 10 MG/ML INJ 1ML SDV IV PRN (21:40)
[2017-10-03] VITALS (8 sets, daily range): BP systolic 132–154; BP diastolic 80–96
[2017-10-03] MEDS: ACETYLCYSTEINE 20%(200MG/ML) SOL 4ML NEB SCH ×6 (02:20→21:49)
[2017-10-03] MEDS: IPRATROPIUM BROM 0.5 MG/2.5ML INH SOL NEB SCH ×6 (02:20→21:49)
[2017-10-03] MEDS: ALBUTEROL SULF 2.5 MG/0.5ML(0.5%) NEB SOLN NEB SCH ×6 (02:20→21:49)
[2017-10-03] MEDS: Nutren Pulmonary 250ml Bottle PO SCH ×2 (08:00→11:59)
[2017-10-03] MEDS: FUROSEMIDE 40 MG TAB PO SCH (10:00)
[2017-10-03] MEDS: POTASSIUM CHL 10% (20 MEQ/15ML) 15ml ORAL SOLN GT SCH (10:00)
[2017-10-03] MEDS: PRO-STAT 64 30ML GT SCH ×2 (10:00→21:37)
[2017-10-03] MEDS: ENOXAPARIN SOD 40 MG/0.4 ML SYRINGE SC SCH (10:39)
[2017-10-03] MEDS: FLUCONAZOLE 200MG/100ML 100 ML IV SCH (10:39)
[2017-10-03] MEDS: SODIUM CHLOR 0.9% PF (SALINE LOCK) 10ML VIAL IV SCH ×2 (10:40→22:00)
[2017-10-03] MEDS: PANTOPRAZOLE 40 MG/10 ML VIAL IV SCH (10:40)
[2017-10-03] MEDS ORDERED: LABETALOL HCL 5 MG/ML ML 20ML VIAL IV PRN (12:00)
[2017-10-03] MEDS: D5W/SOD CHL 0.45%/KCL 20MEQ 1,000 ML IV SCH (17:05)
[2017-10-03] MEDS: MORPHINE SULFATE 10 MG/ML INJ 1ML SDV IV PRN (21:38)
[2017-10-04] VITALS (8 sets, daily range): BP systolic 112–156; BP diastolic 68–99
[2017-10-04] MEDS: IPRATROPIUM BROM 0.5 MG/2.5ML INH SOL NEB SCH ×6 (01:56→22:27)
[2017-10-04] MEDS: ACETYLCYSTEINE 20%(200MG/ML) SOL 4ML NEB SCH ×6 (01:56→22:27)
[2017-10-04] MEDS: ALBUTEROL SULF 2.5 MG/0.5ML(0.5%) NEB SOLN NEB SCH ×6 (01:57→22:27)
[2017-10-04 05:27] LABS: BUN/Creatinine Ratio 51.7; Calcium 7.6 mg/dL (8.5-10.1); Magnesium 2.3 mg/dL (1.6-2.6); Potassium 3.8 mmol/L (3.5-5.1)
[2017-10-04 05:28] LABS: Hematocrit 26.2 % (41.0-53.0); Mean Corpuscular Hemoglobin 32.3 pg (28.0-32.0); Mean Corpuscular Hgb Conc. 34.4 g/dL (32.0-36.0); Mean Corpuscular Volume 93.8 fL (80.0-100.0); Platelet Count (auto) 400 10^3/uL (140-450); Red Cell Distribution Width 14.9 % (11.8-14.3); White Blood Cell 10.8 10^3/uL (4.4-10.8)
[2017-10-04 05:52] LABS: Blast Cells 0; Promyelocytes % 0; Reactive Lymphocytes 0
[2017-10-04 06:26] LABS: Band Neutrophils % (manual) 2; Basophils % (manual) 1 (0.0-2.0); Eosinophils % (manual) 1 (0-7); Lymphocytes % (manual) 15 (10.0-50.0); Metamyelocytes % 1; Monocytes % (manual) 4 (0-12); Myelocytes % 2
[2017-10-04] MEDS: ENOXAPARIN SOD 40 MG/0.4 ML SYRINGE SC SCH (10:00)
[2017-10-04] MEDS: PRO-STAT 64 30ML GT SCH ×2 (10:00→21:45)
[2017-10-04] MEDS: PANTOPRAZOLE 40 MG/10 ML VIAL IV SCH (10:00)
[2017-10-04] MEDS: SODIUM CHLOR 0.9% PF (SALINE LOCK) 10ML VIAL IV SCH ×2 (10:46→21:45)
[2017-10-04] MEDS: POTASSIUM CHL 10% (20 MEQ/15ML) 15ml ORAL SOLN GT SCH (10:46)
[2017-10-04] MEDS: FUROSEMIDE 40 MG TAB PO SCH (10:50)
[2017-10-04] MEDS: Nutren Pulmonary 250ml Bottle PO SCH ×2 (10:55→18:00)
[2017-10-04] MEDS ORDERED: PYRIDOSTIGMINE BROMIDE 60 MG TAB PO ONE (11:00)
[2017-10-04] MEDS: PYRIDOSTIGMINE BROMIDE 60 MG TAB PEG SCH ×2 (14:56→21:52)
[2017-10-05] MEDS: IPRATROPIUM BROM 0.5 MG/2.5ML INH SOL NEB SCH ×5 (02:19→22:19)
[2017-10-05] MEDS: ALBUTEROL SULF 2.5 MG/0.5ML(0.5%) NEB SOLN NEB SCH ×5 (02:19→22:19)
[2017-10-05] MEDS: ACETYLCYSTEINE 20%(200MG/ML) SOL 4ML NEB SCH ×6 (02:20→22:19)
[2017-10-05 04:24] VITALS: BP 141/88
[2017-10-05] MEDS: PYRIDOSTIGMINE BROMIDE 60 MG TAB PEG SCH (06:21)
[2017-10-05] MEDS: Nutren Pulmonary 250ml Bottle PO SCH ×2 (08:00→21:12)
[2017-10-05] MEDS: ENOXAPARIN SOD 40 MG/0.4 ML SYRINGE SC SCH (11:30)
[2017-10-05] MEDS: POTASSIUM CHL 10% (20 MEQ/15ML) 15ml ORAL SOLN GT SCH (11:31)
[2017-10-05] MEDS: SODIUM CHLOR 0.9% PF (SALINE LOCK) 10ML VIAL IV SCH ×2 (11:31→22:02)
[2017-10-05] MEDS: PRO-STAT 64 30ML GT SCH ×2 (11:31→22:02)
[2017-10-05] MEDS: FUROSEMIDE 40 MG TAB PO SCH (11:33)
[2017-10-05 12:00] VITALS: BP 145/89
[2017-10-05] MEDS ORDERED: ALBUTEROL SULF 2.5 MG/0.5ML(0.5%) NEB SOLN ONE (14:31)
[2017-10-05] MEDS ORDERED: IPRATROPIUM BROM 0.5 MG/2.5ML INH SOL ONE (14:32)
[2017-10-05 15:59] VITALS: BP 138/80
[2017-10-05 19:49] VITALS: BP 151/92
[2017-10-06] VITALS (8 sets, daily range): BP systolic 119–150; BP diastolic 84–93
[2017-10-06] MEDS: IPRATROPIUM BROM 0.5 MG/2.5ML INH SOL NEB SCH ×6 (02:13→22:12)
[2017-10-06] MEDS: ACETYLCYSTEINE 20%(200MG/ML) SOL 4ML NEB SCH ×6 (02:13→22:12)
[2017-10-06] MEDS: ALBUTEROL SULF 2.5 MG/0.5ML(0.5%) NEB SOLN NEB SCH ×6 (02:13→22:12)
[2017-10-06] MEDS: ENOXAPARIN SOD 40 MG/0.4 ML SYRINGE SC SCH (09:51)
[2017-10-06] MEDS: SODIUM CHLOR 0.9% PF (SALINE LOCK) 10ML VIAL IV SCH ×2 (09:51→22:10)
[2017-10-06] MEDS: FUROSEMIDE 40 MG TAB PO SCH (09:51)
[2017-10-06] MEDS: PRO-STAT 64 30ML GT SCH ×2 (09:52→22:10)
[2017-10-06] MEDS: POTASSIUM CHL 10% (20 MEQ/15ML) 15ml ORAL SOLN GT SCH (09:52)
[2017-10-06] MEDS: HYDROcodone-ACET 5/325MG TAB PO PRN (14:33)
[2017-10-06] MEDS: Nutren Pulmonary 250ml Bottle PO SCH (18:00)
[2017-10-07] MEDS: IPRATROPIUM BROM 0.5 MG/2.5ML INH SOL NEB SCH ×5 (01:56→20:29)
[2017-10-07] MEDS: ACETYLCYSTEINE 20%(200MG/ML) SOL 4ML NEB SCH ×6 (01:56→22:00)
[2017-10-07] MEDS: ALBUTEROL SULF 2.5 MG/0.5ML(0.5%) NEB SOLN NEB SCH ×5 (01:56→20:29)
[2017-10-07 03:54] VITALS: BP 128/92
[2017-10-07 07:30] VITALS: BP 139/71
[2017-10-07] MEDS: POTASSIUM CHL 10% (20 MEQ/15ML) 15ml ORAL SOLN GT SCH (09:52)
[2017-10-07] MEDS: PRO-STAT 64 30ML GT SCH ×2 (09:52→22:37)
[2017-10-07] MEDS: SODIUM CHLOR 0.9% PF (SALINE LOCK) 10ML VIAL IV SCH ×2 (09:52→22:37)
[2017-10-07] MEDS: FUROSEMIDE 40 MG TAB PO SCH (09:53)
[2017-10-07] MEDS: ENOXAPARIN SOD 40 MG/0.4 ML SYRINGE SC SCH (09:53)
[2017-10-07] MEDS: HYDROcodone-ACET 5/325MG TAB PO PRN (11:21)
[2017-10-07 11:58] VITALS: BP 131/88
[2017-10-07 15:49] VITALS: BP 132/83
[2017-10-07 20:00] VITALS: BP 140/90
[2017-10-08 00:22] VITALS: BP 137/89
[2017-10-08] MEDS: ACETYLCYSTEINE 20%(200MG/ML) SOL 4ML NEB SCH ×4 (02:00→14:40)
[2017-10-08 04:00] VITALS: BP 130/84
[2017-10-08] MEDS: ALBUTEROL SULF 2.5 MG/0.5ML(0.5%) NEB SOLN NEB SCH ×3 (06:16→14:39)
[2017-10-08] MEDS: IPRATROPIUM BROM 0.5 MG/2.5ML INH SOL NEB SCH ×3 (06:16→14:39)
[2017-10-08 08:00] VITALS: BP 139/95
[2017-10-08] MEDS: ENOXAPARIN SOD 40 MG/0.4 ML SYRINGE SC SCH (09:31)
[2017-10-08] MEDS: HYDROcodone-ACET 5/325MG TAB PO PRN ×2 (09:32→18:22)
[2017-10-08] MEDS: FUROSEMIDE 40 MG TAB PO SCH (09:32)
[2017-10-08] MEDS: POTASSIUM CHL 10% (20 MEQ/15ML) 15ml ORAL SOLN GT SCH (09:33)
[2017-10-08] MEDS: Nutren Pulmonary 250ml Bottle PO SCH (09:33)
[2017-10-08] MEDS: SODIUM CHLOR 0.9% PF (SALINE LOCK) 10ML VIAL IV SCH (09:34)
[2017-10-08] MEDS: PRO-STAT 64 30ML GT SCH (09:34)
[2017-10-08 11:51] VITALS: BP 136/93
[2017-10-08 15:56] VITALS: BP 146/95
[2017-10-08 17:57] VITALS: BP 146/95
[2017-10-08] MEDS ORDERED: ACETYLCYSTEINE 20%(200MG/ML) SOL 4ML NEB SCH (18:00)
== END 2017-10-08 19:12 | DRG 3 ==
LOC: ER 18:50 → TELE 18:51 → WEST WING 23:55 → ICU WEST 09-04 05:42 → DOU IN ICU 09-08 20:37 → ICU WEST 09-10 15:59 → DOU IN ICU 09-25 16:15
PROVIDERS: ADMIT Family Medicine; ATTEND Internal Medicine
PROC: 0BH18EZ Insertion of Endotracheal Airway into Trachea, Via Natural or Artificial Opening Endoscopic (ICD-10-PCS; principal; 2017-09-04)
PROC: 5A1955Z Respiratory Ventilation, Greater than 96 Consecutive Hours (ICD-10-PCS; 2017-09-04)
PROC: 5A09357 Assistance with Respiratory Ventilation, Less than 24 Consecutive Hours, Continuous Positive Airway Pressure (ICD-10-PCS; 2017-09-06)
PROC: 5A09357 Assistance with Respiratory Ventilation, Less than 24 Consecutive Hours, Continuous Positive Airway Pressure (ICD-10-PCS; 2017-09-07)
PROC: 5A09357 Assistance with Respiratory Ventilation, Less than 24 Consecutive Hours, Continuous Positive Airway Pressure (ICD-10-PCS; 2017-09-08)
PROC: 5A09357 Assistance with Respiratory Ventilation, Less than 24 Consecutive Hours, Continuous Positive Airway Pressure (ICD-10-PCS; 2017-09-09)
PROC: 5A09357 Assistance with Respiratory Ventilation, Less than 24 Consecutive Hours, Continuous Positive Airway Pressure (ICD-10-PCS; 2017-09-10)
PROC: 02HV33Z Insertion of Infusion Device into Superior Vena Cava, Percutaneous Approach (ICD-10-PCS; 2017-09-11)
PROC: 30233N1 Transfusion of Nonautologous Red Blood Cells into Peripheral Vein, Percutaneous Approach (ICD-10-PCS; 2017-09-18)
PROC: 0B110F4 Bypass Trachea to Cutaneous with Tracheostomy Device, Open Approach (ICD-10-PCS; 2017-09-23)
PROC: 0DJ08ZZ Inspection of Upper Intestinal Tract, Via Natural or Artificial Opening Endoscopic (ICD-10-PCS; 2017-09-28)
PROC: 0BC78ZZ Extirpation of Matter from Left Main Bronchus, Via Natural or Artificial Opening Endoscopic (ICD-10-PCS; 2017-09-28)
PROC: 0DH60UZ Insertion of Feeding Device into Stomach, Open Approach (ICD-10-PCS; 2017-10-01)
DX: A41.9 Sepsis, unspecified organism (principal); R65.21 Severe sepsis with septic shock; E43 Unspecified severe protein-calorie malnutrition; G93.1 Anoxic brain damage, not elsewhere classified; G93.41 Metabolic encephalopathy; J18.9 Pneumonia, unspecified organism; T17.590A Other foreign object in bronchus causing asphyxiation, initial encounter; I82.441 Acute embolism and thrombosis of right tibial vein; D64.9 Anemia, unspecified; J96.02 Acute respiratory failure with hypercapnia; J96.01 Acute respiratory failure with hypoxia; N39.0 Urinary tract infection, site not specified; E87.1 Hypo-osmolality and hyponatremia; Z99.11 Dependence on respirator [ventilator] status; T17.990A Other foreign object in respiratory tract, part unspecified in causing asphyxiation, initial encounter; K29.70 Gastritis, unspecified, without bleeding; E78.5 Hyperlipidemia, unspecified; E87.6 Hypokalemia; I11.9 Hypertensive heart disease without heart failure; I25.10 Atherosclerotic heart disease of native coronary artery without angina pectoris; R62.7 Adult failure to thrive; X58.XXXA Exposure to other specified factors, initial encounter; Y93.89 Activity, other specified; Y92.89 Other specified places as the place of occurrence of the external cause; Z79.01 Long term (current) use of anticoagulants; Z83.3 Family history of diabetes mellitus; Z93.1 Gastrostomy status; Z99.3 Dependence on wheelchair; Z79.899 Other long term (current) drug therapy; Z68.24 Body mass index [BMI] 24.0-24.9, adult
CPT/HCPCS: 31645; 31720; 36415; 36569; 36600; 43235; 51702; 70450; 71010; 71045; 71275; 80048; 80053; 80061; 80202; 81001; 82550; 82805; 82962; 83605; 83735; 83880; 84132; 84484; 85007; 85025; 85027; 85379; 85610; 85730; 86850; 86900; 86901; 86920; 87040; 87070; 87081; 87086; 87205; 87400; 92526; 92610; 93005; 93306; 93970; 94002; 94003; 94640; 94660; 94668; 94761; 95819; 96361; 96365; 96375; 97110; 97163; 97530; C9113; J0171; J0330; J0461; J0690; J1450; J1956; J2001; J2250; J2405; J2543; J2704; J3010; J3490; J7060

== ENCOUNTER 2018-06-09 15:02 | Inpatient (IN) | payer MEDICARE, OTHER ==
[~2018-06-09] VITALS: Ht 172.7 cm; Wt 73.3 kg
[~2018-06-09 15:02] MED LIST: CYCL1TAB18 PO; LISI-285 PO; NAPR375T27 PO; POM; PRED-559 PO; TRIA50TA2 PO
[2018-06-09] MEDS ORDERED: SODIUM CHLORIDE 0.9% 1,000 ML IV ONE (15:28)
[2018-06-09] MEDS ORDERED: cefTRIAXone 1GM/10ml IVPUSH 10 ML IV ONE (16:15)
[2018-06-09 16:41] LABS: Basophils # (auto) 0 uL; Basophils % (auto) 0.6 % (0.0-2.0); Eosinophils # (auto) 0.5 uL; Eosinophils % (auto) 5.4 % (0.0-7.0); Hematocrit 38.4 % (41.0-53.0); Hemoglobin 12.9 g/dL (13.5-17.5); Lymphocytes # (auto) 2.1 uL; Lymphocytes % (auto) 24.1 % (10.0-50.0); Mean Corpuscular Hemoglobin 30.8 pg (28.0-32.0); Mean Corpuscular Hgb Conc. 33.6 g/dL (32.0-36.0); Mean Corpuscular Volume 91.6 fL (80.0-100.0); Monocytes # (auto) 0.6 uL; Monocytes % (auto) 7.4 % (0.0-12.0); Neutrophils # (auto) 5.3 uL; Neutrophils % (auto) 62.5 % (37.0-80.0); Nucleated Red Blood Cells % 0.2 %; Platelet Count (auto) 256 10^3/uL (140-450); Red Blood Cells 4.19 10^6/uL (4.5-5.90); Red Cell Distribution Width 15.4 % (11.8-14.3); White Blood Cell 8.5 10^3/uL (4.4-10.8)
[2018-06-09 16:51] LABS: Alanine Aminotransferase 40 U/L (16-61); Albumin 3.2 g/dL (3.4-5.0); Alkaline Phosphatase 109 U/L (45-117); Anion Gap 5 (5-15); Aspartate Aminotransferase 26 U/L (15-37); Bilirubin, Total 0.7 mg/dL (0.2-1.0); Blood Urea Nitrogen 19 mg/dL (7-18); Carbon Dioxide 25 mmol/L (21-32); Chloride 110 mmol/L (98-107); GFR African American 289 mL/min; GFR Non-African American 239 mL/min; Glucose 82 mg/dL (74-106); Potassium 3.7 mmol/L (3.5-5.1); Sodium 140 mmol/L (136-145); Total Protein 7.4 g/dL (6.4-8.2)
[2018-06-09 17:12] LABS: INR 1.06 (0.9-1.15); Partial Thromboplastin Time 26.4 sec (23.78-33.04); Prothrombin Time 11.3 sec (9.27-12.13)
[2018-06-09 17:54] VITALS: BP 145/95
[2018-06-09 17:56] LABS: Urine Amorphous Crystal FEW /hpf (None Seen); Urine Bacteria NONE SEEN /hpf (None Seen); Urine Blood Negative /uL (Negative); Urine Specific Gravity 1.009 (1.001-1.035); Urine WBC 1 /hpf (0 - 3)
[2018-06-09] MEDS ORDERED: ONDANSETRON HCL 4 MG/2 ML VIAL IV PRN (18:15)
[2018-06-09] MEDS ORDERED: PANTOPRAZOLE 40 MG/10 ML VIAL IV ONE (18:15)
[2018-06-09] MEDS ORDERED: NITROGLYCERIN 0.4 MG SL TAB SL PRN (18:15)
[2018-06-09] MEDS ORDERED: MORPHINE SULFATE 4 MG/ML SYR/VIAL IV PRN ×2 (18:15)
[2018-06-09] MEDS ORDERED: LORazepam 2MG/ML-1ML VIAL IV PRN (18:15)
[2018-06-09] MEDS ORDERED: ALBUTEROL SULF 2.5 MG/0.5ML(0.5%) NEB SOLN NEB PRN (18:15)
[2018-06-09] MEDS ORDERED: LACTULOSE 20Gm/30ML SOLN PO PRN (18:15)
[2018-06-09 18:24] VITALS: BP 117/72
[2018-06-09] MEDS: SODIUM CHLORIDE 0.9% 1,000 ML IV SCH (18:27)
[2018-06-09] MEDS ORDERED: AZITHROMYCIN 500MG/ 250ML 250 ML IV SCH (18:30)
[2018-06-09 18:56] LABS: Amylase 172 U/L (25-115); Lipase 135 U/L (73-393)
[2018-06-09] MEDS ORDERED: Jevity 1.2 Cal/Fiber 1 Liter GT SCH (19:30)
[2018-06-09 20:26] VITALS: BP 119/81
[2018-06-09 21:53] VITALS: BP 130/84
[2018-06-09 23:00] VITALS: BP 130/84
[2018-06-10] MEDS: ALBUTEROL SULF 2.5 MG/0.5ML(0.5%) NEB SOLN NEB SCH ×4 (00:07→18:45)
[2018-06-10 01:32] LABS: Hemoglobin 12.1 g/dL (13.5-17.5)
[2018-06-10] MEDS: MORPHINE SULFATE 4 MG/ML SYR/VIAL IV PRN (01:46)
[2018-06-10 04:18] VITALS: BP 137/78
[2018-06-10 05:00] VITALS: BP 137/78
[2018-06-10 07:21] LABS: Basophils # (auto) 0 uL; Basophils % (auto) 0.5 % (0.0-2.0); Eosinophils # (auto) 0.6 uL; Eosinophils % (auto) 5.4 % (0.0-7.0); Hematocrit 36.2 % (41.0-53.0); Hemoglobin 12.4 g/dL (13.5-17.5); Lymphocytes # (auto) 1.5 uL; Lymphocytes % (auto) 15.2 % (10.0-50.0); Mean Corpuscular Hemoglobin 31.5 pg (28.0-32.0); Mean Corpuscular Hgb Conc. 34.4 g/dL (32.0-36.0); Mean Corpuscular Volume 91.6 fL (80.0-100.0); Monocytes # (auto) 0.7 uL; Monocytes % (auto) 7.1 % (0.0-12.0); Neutrophils # (auto) 7.3 uL; Neutrophils % (auto) 71.8 % (37.0-80.0); Platelet Count (auto) 233 10^3/uL (140-450); Red Blood Cells 3.95 10^6/uL (4.5-5.90); Red Cell Distribution Width 15.1 % (11.8-14.3); White Blood Cell 10.2 10^3/uL (4.4-10.8)
[2018-06-10] MEDS: SODIUM CHLORIDE 0.9% 1,000 ML IV SCH ×3 (07:23→21:22)
[2018-06-10 07:44] LABS: BUN/Creatinine Ratio 57.1; Bilirubin, Total 0.7 mg/dL (0.2-1.0); Calcium 8.8 mg/dL (8.5-10.1); Potassium 3.5 mmol/L (3.5-5.1); Total Protein 6.9 g/dL (6.4-8.2)
[2018-06-10 08:29] VITALS: BP 130/84
[2018-06-10] MEDS ORDERED: cefTRIAXone 1GM/10ml IVPUSH 10 ML IV SCH (09:00)
[2018-06-10] MEDS ORDERED: PNEUMOCOCCAL VACC POLYS 25 MCG/0.5 ML VIAL IM ONE (10:00)
[2018-06-10] MEDS ORDERED: Jevity 1.2 Cal/Fiber 1 Liter GT SCH (11:45)
[2018-06-10 12:27] LABS: Hematocrit 40.4 % (41.0-53.0); Hemoglobin 13.2 g/dL (13.5-17.5)
[2018-06-10 12:52] VITALS: BP 123/75
[2018-06-10] MEDS ORDERED: LORA-654 GT (13:11)
[2018-06-10] MEDS ORDERED: RILU1TAB GT (13:11)
[2018-06-10] MEDS ORDERED: TRAZ50TA2 GT (13:11)
[2018-06-10] MEDS ORDERED: SULF400T11 GT (13:11)
[2018-06-10] MEDS ORDERED: ACET-947 GT (13:11)
[2018-06-10] MEDS ORDERED: FAMO-12 GT (13:11)
[2018-06-10] MEDS ORDERED: GABA300C10 GT (13:11)
[2018-06-10] MEDS ORDERED: NUTR-1080 GT (13:11)
[2018-06-10] MEDS ORDERED: SENN1TAB14 GT (13:11)
[2018-06-10] MEDS ORDERED: LABE100T4 GT (13:11)
[2018-06-10] MEDS ORDERED: TEMA30CA GT (13:11)
[2018-06-10] MEDS ORDERED: FURO20TA3 GT (13:11)
[2018-06-10] MEDS ORDERED: CITA-77 GT (13:11)
[2018-06-10] MEDS: ENOXAPARIN SOD 40 MG/0.4 ML SYRINGE SC SCH (14:36)
[2018-06-10] MEDS: PANTOPRAZOLE 40 MG/10 ML VIAL IV SCH ×2 (14:36→21:23)
[2018-06-10] MEDS ORDERED: LACTULOSE 20Gm/30ML SOLN GT PRN (15:15)
[2018-06-10] MEDS: cefTAZidime 1 GM in SODIUM CHL 0.9% 50 ML IV SCH ×2 (15:42→21:34)
[2018-06-10 16:33] VITALS: BP 129/75
[2018-06-10] MEDS: traZODone HCL 50 MG TAB GT SCH (21:24)
[2018-06-10] MEDS: GABAPENTIN 300 MG CAP GT SCH (21:25)
[2018-06-10 22:00] VITALS: BP 121/73
[2018-06-10] MEDS ORDERED: GABAPENTIN 300 MG CAP PO SCH (22:00)
[2018-06-10] MEDS ORDERED: traZODone HCL 50 MG TAB PO SCH (22:00)
[2018-06-11] MEDS: ALBUTEROL SULF 2.5 MG/0.5ML(0.5%) NEB SOLN NEB SCH ×5 (00:15→23:29)
[2018-06-11] MEDS ORDERED: TEMAZEPAM 15 MG CAP PO ONE (00:15)
[2018-06-11 05:00] VITALS: BP 95/62
[2018-06-11] MEDS: cefTAZidime 1 GM in SODIUM CHL 0.9% 50 ML IV SCH ×3 (06:21→21:38)
[2018-06-11 09:16] VITALS: BP 91/60
[2018-06-11] MEDS ORDERED: CITALOPRAM HYDROBR 20 MG TAB PO SCH (10:00)
[2018-06-11] MEDS: PANTOPRAZOLE 40 MG/10 ML VIAL IV SCH ×2 (10:53→21:37)
[2018-06-11] MEDS: ENOXAPARIN SOD 40 MG/0.4 ML SYRINGE SC SCH (10:53)
[2018-06-11] MEDS: CITALOPRAM HYDROBR 20 MG TAB GT SCH (10:54)
[2018-06-11] MEDS: GABAPENTIN 300 MG CAP GT SCH ×2 (10:54→21:38)
[2018-06-11] MEDS: SODIUM CHLORIDE 0.9% 1,000 ML IV SCH (11:19)
[2018-06-11 13:00] VITALS: BP 99/64
[2018-06-11 17:18] VITALS: BP 125/66
[2018-06-11] MEDS: traZODone HCL 50 MG TAB GT SCH (21:38)
[2018-06-11 21:39] VITALS: BP 127/79
[2018-06-11] MEDS: ACETYLCYSTEINE 10 %(100MG/ML) SOL 4ML NEB SCH (23:29)
[2018-06-12] MEDS: SODIUM CHLORIDE 0.9% 1,000 ML IV SCH ×2 (00:25→14:25)
[2018-06-12 04:43] VITALS: BP 143/84
[2018-06-12] MEDS: cefTAZidime 1 GM in SODIUM CHL 0.9% 50 ML IV SCH (05:47)
[2018-06-12] MEDS: ACETYLCYSTEINE 10 %(100MG/ML) SOL 4ML NEB SCH ×2 (07:08→18:25)
[2018-06-12] MEDS: ALBUTEROL SULF 2.5 MG/0.5ML(0.5%) NEB SOLN NEB SCH ×3 (07:08→18:25)
[2018-06-12 09:00] VITALS: BP 139/86
[2018-06-12] MEDS: PANTOPRAZOLE 40 MG/10 ML VIAL IV SCH ×2 (10:04→21:53)
[2018-06-12] MEDS: GABAPENTIN 300 MG CAP GT SCH ×2 (10:19→21:52)
[2018-06-12] MEDS: ENOXAPARIN SOD 40 MG/0.4 ML SYRINGE SC SCH (10:20)
[2018-06-12] MEDS: CITALOPRAM HYDROBR 20 MG TAB GT SCH (10:20)
[2018-06-12 13:00] VITALS: BP 143/93
[2018-06-12] MEDS: MEROPENEM 1GM IVPB 100 ML IV SCH ×2 (14:22→21:53)
[2018-06-12] MEDS ORDERED: GASTROGRAFIN 30 ML SOL ONE (14:23)
[2018-06-12 17:00] VITALS: BP 128/72
[2018-06-12 20:29] VITALS: BP 128/72
[2018-06-12] MEDS: traZODone HCL 50 MG TAB GT SCH (21:52)
[2018-06-12 21:58] VITALS: BP 145/89
[2018-06-13] MEDS: ALBUTEROL SULF 2.5 MG/0.5ML(0.5%) NEB SOLN NEB SCH ×4 (00:33→18:36)
[2018-06-13] MEDS: SODIUM CHLORIDE 0.9% 1,000 ML IV SCH (02:19)
[2018-06-13 04:38] VITALS: BP 118/78
[2018-06-13] MEDS: ACETYLCYSTEINE 10 %(100MG/ML) SOL 4ML NEB SCH ×2 (05:56→18:36)
[2018-06-13] MEDS: MEROPENEM 1GM IVPB 100 ML IV SCH ×3 (06:05→21:14)
[2018-06-13 06:27] LABS: Basophils # (auto) 0.1 uL; Basophils % (auto) 0.6 % (0.0-2.0); Eosinophils # (auto) 0.4 uL; Eosinophils % (auto) 4.3 % (0.0-7.0); Hemoglobin 12.2 g/dL (13.5-17.5); Lymphocytes # (auto) 1.5 uL; Lymphocytes % (auto) 14.9 % (10.0-50.0); Mean Corpuscular Hemoglobin 31.4 pg (28.0-32.0); Mean Corpuscular Volume 92.5 fL (80.0-100.0); Monocytes # (auto) 0.7 uL; Monocytes % (auto) 7.1 % (0.0-12.0); Neutrophils # (auto) 7.3 uL; Neutrophils % (auto) 73.1 % (37.0-80.0); Nucleated Red Blood Cells % 0.1 %; Platelet Count (auto) 256 10^3/uL (140-450); Red Blood Cells 3.89 10^6/uL (4.5-5.90); Red Cell Distribution Width 15.5 % (11.8-14.3)
[2018-06-13 06:50] LABS: Albumin 2.6 g/dL (3.4-5.0); BUN/Creatinine Ratio 22.4; Calcium 8.6 mg/dL (8.5-10.1); Potassium 3.5 mmol/L (3.5-5.1)
[2018-06-13 06:53] LABS: Bilirubin, Total 0.5 mg/dL (0.2-1.0); Total Protein 6.8 g/dL (6.4-8.2)
[2018-06-13 08:00] VITALS: BP 141/84
[2018-06-13 08:36] VITALS: BP 141/84
[2018-06-13] MEDS: CITALOPRAM HYDROBR 20 MG TAB GT SCH (09:33)
[2018-06-13] MEDS: GABAPENTIN 300 MG CAP GT SCH ×2 (09:33→21:14)
[2018-06-13] MEDS: PANTOPRAZOLE 40 MG/10 ML VIAL IV SCH ×2 (09:33→21:14)
[2018-06-13] MEDS ORDERED: ENOXAPARIN SOD 60 MG/0.6 ML SYRINGE SC ONE (10:00)
[2018-06-13 13:00] VITALS: BP 126/80
[2018-06-13 17:13] VITALS: BP 129/62
[2018-06-13] MEDS: traZODone HCL 50 MG TAB GT SCH (21:14)
[2018-06-13] MEDS: MORPHINE SULFATE 4 MG/ML SYR/VIAL IV PRN (21:15)
[2018-06-13 22:00] VITALS: BP 153/93
[2018-06-14] MEDS: ALBUTEROL SULF 2.5 MG/0.5ML(0.5%) NEB SOLN NEB SCH ×4 (00:21→18:44)
[2018-06-14 05:24] VITALS: BP 149/92
[2018-06-14] MEDS: MEROPENEM 1GM IVPB 100 ML IV SCH ×2 (05:47→14:00)
[2018-06-14] MEDS: ACETYLCYSTEINE 10 %(100MG/ML) SOL 4ML NEB SCH (06:06)
[2018-06-14 08:45] VITALS: BP 133/81
[2018-06-14] MEDS ORDERED: ENOXAPARIN SOD 40 MG/0.4 ML SYRINGE SC SCH (10:00)
[2018-06-14] MEDS: GABAPENTIN 300 MG CAP GT SCH (10:22)
[2018-06-14] MEDS: CITALOPRAM HYDROBR 20 MG TAB GT SCH (10:22)
[2018-06-14] MEDS: PANTOPRAZOLE 40 MG/10 ML VIAL IV SCH (10:22)
[2018-06-14 13:00] VITALS: BP 151/86
[2018-06-14 16:47] VITALS: BP 149/86
[2018-06-14 17:00] VITALS: BP 147/92
== END 2018-06-14 19:35 | disposition home or self-care (01) | DRG 393 ==
LOC: EDBD 15:02 → ER 15:10 → TELE 15:11 → TELE-WESTW 21:11
PROVIDERS: ADMIT Internal Medicine; ATTEND Internal Medicine
PROC: 5A1955Z Respiratory Ventilation, Greater than 96 Consecutive Hours (ICD-10-PCS; 2018-06-09)
PROC: 0D20XUZ Change Feeding Device in Upper Intestinal Tract, External Approach (ICD-10-PCS; principal; 2018-06-12)
PROC: 0B21XFZ Change Tracheostomy Device in Trachea, External Approach (ICD-10-PCS; 2018-06-13)
DX: K94.23 Gastrostomy malfunction (principal); J15.1 Pneumonia due to Pseudomonas; Z99.11 Dependence on respirator [ventilator] status; G12.20 Motor neuron disease, unspecified; E44.0 Moderate protein-calorie malnutrition; J96.10 Chronic respiratory failure, unspecified whether with hypoxia or hypercapnia; N20.0 Calculus of kidney; Z79.899 Other long term (current) drug therapy; I10 Essential (primary) hypertension; Z68.24 Body mass index [BMI] 24.0-24.9, adult; E78.5 Hyperlipidemia, unspecified; F32.9 Major depressive disorder, single episode, unspecified; Z87.442 Personal history of urinary calculi; Z98.1 Arthrodesis status; Z86.718 Personal history of other venous thrombosis and embolism; Z71.3 Dietary counseling and surveillance; Z83.3 Family history of diabetes mellitus; R13.10 Dysphagia, unspecified
CPT/HCPCS: 36415; 36600; 71045; 71250; 74021; 74176; 80053; 80061; 81001; 82150; 82805; 83605; 83690; 83880; 84484; 85014; 85018; 85025; 85045; 85610; 85730; 87040; 87070; 87077; 87186; 87205; 87804; 93970; 94002; 94003; 94640; 94667; 94668; 96361; 96365; 96375; A4605; C9113; J0696; J2185; J2405